=== PATIENT | female | born 1945 | race Caucasian/White ===

== ENCOUNTER 2017-01-03 09:56 | Observation (INO) | payer MEDICARE, OTHER ==
[~2017-01-03] VITALS: Ht 160 cm; Wt 84.9 kg
[~2017-01-03 09:56] MED LIST: AMLO5TAB2 PO; CLON1TAB23 PO; CLON1TAB4 PO; DOXY100T2 PO; ESOM40CA PO; FLUO40CA7 PO; HYDR-4072 PO; LEVO137T2 PO; LISI10TA7 PO; METH10TA5 PO; ONDA-55 PO; PANT40TA27 PO; TRAZ-173 PO
--- OUTSIDE RECORDS SUMMARY | 2017-01-03 10:00 | XMS REPORT | Continuity of Care Document ---
Author Author [facility] Organization [facility] Address Unknown Phone Unavailable Care Team Providers Care Pipeline Executive Name Role Phone Nellie Dodson Primary Care Physician Unavailable Source Comments Some departments are not documenting in the electronic medical record. If you do not see the information that you expected, contact Release of Information in the Health Information Management department at [phone] for further assistance in locating additional records.[facility] Active Allergies and Adverse Reactions Allergen Noted Date Severity Reactions Comments Abilify 06/29/2015 Low SEE COMMENTS "many, many side effects and no benefit" Aspirin 06/29/2015 Low STOMACH UPSET Benadryl 07/02/2015 Low SEE COMMENTS rest less leg Cymbalta 06/29/2015 Low SEE COMMENTS "suicidal" Hydralazine 06/29/2015 Low SEE COMMENTS "interacts with my other meds" Macrodantin 06/29/2015 Low SEE COMMENTS "makes me psychotic" Phenergan 06/29/2015 Medium MENTAL STATUS CHANGES Pristiq 06/29/2015 Low SEE COMMENTS "suicidal" Sulfa (Sulfonamide 06/29/2015 Low SEE COMMENTS "bladder pain" Antibiotics) Tramadol 07/02/2015 Low UNKNOWN Current Medications Prescription Sig. Disp. Refills Start End Date Status Date methylphenidate (RITALIN; Take 10 mg by mouth four Active METHYLIN) 10 mg tablet times daily traZODone (DESYREL) 100 Take 100 mg by mouth at Active mg tablet bedtime daily. vilazodone (VIIBRYD) 40 Take by mouth at bedtime Active mg tab daily. clonazePAM (KLONOPIN) 0.5 Take 0.25 mg by mouth Active mg tablet three times daily. lisinopril (PRINIVIL; Take 10 mg by mouth Active ZESTRIL) 10 mg tablet daily. LACTASE (LACTAID PO) Take by mouth daily. Active amLODIPine (NORVASC) 10 Take 10 mg by mouth four Active mg tablet times daily. ACETAMINOPHEN (TYLENOL Take by mouth as Needed. Active PO) HYDROcodone-acetaminophen Take 1 Tab by mouth every Active (+) (NORCO) 7.5-325 mg 6 hours as needed for tablet Pain levothyroxine Take 137 mcg by mouth Active (LEVOTHROID) 137 mcg daily. tablet other medication 1 Dose. Siberian Pose Nut Active Oil : Taking po daily. Active Problems Not on file Social History Tobacco Use Types Packs/Day Years Used Date Never Smoker Smokeless Tobacco: Never Used Alcohol Use Drinks/Week oz/Week Comments No Last Filed Vital Signs Vital Sign Reading Time Taken Blood Pressure 127/73 07/02/2015 10:44 AM CDT Pulse 83 07/02/2015 10:44 AM CDT Temperature 36.6 C (97.8 F) 07/02/2015 10:44 AM CDT Respiratory Rate - - Height 1.6 m (5' 3") 07/02/2015 10:44 AM CDT Weight 81.466 kg (179 lb 9.6 oz) 07/02/2015 10:44 AM CDT Body Mass Index 31.82 07/02/2015 10:44 AM CDT Oxygen Saturation 98% 07/02/2015 10:44 AM CDT Plan of Care Health Maintenance Due Date Last Done Comments Physical (Comprehensive) 1950 Exam Pertussis Vaccine 1954 Tetanus Vaccine 1960 Breast Cancer Screening 1983 Colorectal Cancer 1993 Screening Shingles Vaccine 2003 Osteoporosis Screening 2008 Prevnar/Pneumovax (#1) 2008 Influenza Vaccine 06/05/2017 Results from Last 3 Months Not on file
--- OUTSIDE RECORDS SUMMARY | 2017-01-03 10:01 | XMS REPORT | Continuity of Care Document ---
Author Author [facility] Organization [facility] Address Unknown Phone Unavailable Allergies Active Description Code Type Severity Reaction Onset Reported/Identified Relationship to Patient Clinical Status Yes BENADRYL BENADRYL Drug Allergy Unknown RESTLESS LEGS 09/15/2008 Yes CODEINE CODEINE Drug Allergy Unknown HYPERACTIVE 09/15/2008 Yes codeine codeine Drug Allergy Unknown N/A 09/15/2008 Yes diazepam diazepam Drug Allergy Unknown N/A 09/15/2008 Yes diphenhydramine diphenhydramine Drug Allergy Unknown N/A 09/15/2008 Yes hydrocodone hydrocodone Drug Allergy Unknown N/A 09/15/2008 Yes LORTAB LORTAB Drug Allergy Unknown HYPERACTIVE 09/15/2008 Yes metoclopramide metoclopramide Drug Allergy Unknown N/A 09/15/2008 Yes No Known Contrast Allergies No Known Contrast Allergies Drug Allergy Unknown N/A 09/15/2008 Yes No Known Food Allergies No Known Food Allergies Drug Allergy Unknown N/A 09/15/2008 Yes NO KNOWN LATEX ALLERGY/SENSITI NO KNOWN LATEX ALLERGY/SENSITI Drug Allergy Unknown N/A 2007 Yes PHENERGAN PHENERGAN Drug Allergy Unknown "MAKES ME CRAZY", RUN FROM ONE ROOM TO ANOTHER 09/15/2008 Yes promethazine promethazine Drug Allergy Unknown N/A 09/15/2008 Yes REGLAN REGLAN Drug Allergy Unknown BOWELS LOOSE 09/15/2008 Yes Sulfa (Sulfonamide Antibiotics) Sulfa (Sulfonamide Antibiotics) Drug Allergy Unknown N/A 09/15 Yes SULFA DRUGS SULFA DRUGS Drug Allergy Unknown BLADDER BURN 09/15/2008 Yes VALIUM VALIUM Drug Allergy Unknown HYPERACTIVE 09/15/2008 Yes BENADRYL BENADRYL Drug Allergy Unknown RESTLESS LEGS 09/15/2008 Yes CODEINE CODEINE Drug Allergy Unknown HYPERACTIVE 09/15/2008 Yes codeine codeine Drug Allergy Unknown N/A 09/15/2008 Yes diazepam diazepam Drug Allergy Unknown N/A 09/15/2008 Yes diphenhydramine diphenhydramine Drug Allergy Unknown N/A 09/15/2008 Yes hydrocodone hydrocodone Drug Allergy Unknown N/A 09/15/2008 Yes LORTAB LORTAB Drug Allergy Unknown HYPERACTIVE 09/15/2008 Yes metoclopramide metoclopramide Drug Allergy Unknown N/A 09/15/2008 Yes No Known Contrast Allergies No Known Contrast Allergies Drug Allergy Unknown N/A 09/15/2008 Yes No Known Food Allergies No Known Food Allergies Drug Allergy Unknown N/A 09/15/2008 Yes NO KNOWN LATEX ALLERGY/SENSITI NO KNOWN LATEX ALLERGY/SENSITI Drug Allergy Unknown N/A 2007 Yes PHENERGAN PHENERGAN Drug Allergy Unknown "MAKES ME CRAZY", RUN FROM ONE ROOM TO ANOTHER 09/15/2008 Yes promethazine promethazine Drug Allergy Unknown N/A 09/15/2008 Yes REGLAN REGLAN Drug Allergy Unknown BOWELS LOOSE 09/15/2008 Yes Sulfa (Sulfonamide Antibiotics) Sulfa (Sulfonamide Antibiotics) Drug Allergy Unknown N/A 09/15 Yes SULFA DRUGS SULFA DRUGS Drug Allergy Unknown BLADDER BURN 09/15/2008 Yes VALIUM VALIUM Drug Allergy Unknown HYPERACTIVE 09/15/2008 Yes Phenergan Drug Allergy Adverse Reaction 09/18/2009 Yes Reglan Drug Allergy Adverse Reaction 09/18/2009 Yes Sulfa (Sulfonamide Antibiotics Drug Allergy Adverse Reaction 09/18/2009 Yes Ultram Drug Allergy Adverse Reaction 09/18/2009 Yes Valium Drug Allergy Adverse Reaction 09/18/2009 Yes Benadryl Cold Drug Allergy Adverse Reaction 05/07/2011 Yes Lortab Drug Allergy Adverse Reaction 05/07/2011 Yes Lactose Miscellaneous Allergy Adverse Reaction / Adverse Reaction 05/18/2011 Yes codeine codeine Drug Allergy Unknown 10/28/2015 Yes diazepam diazepam Drug Allergy Unknown 10/28/2015 Yes diphenhydramine diphenhydramine Drug Allergy Unknown 10/28/2015 Yes hydrocodone hydrocodone Drug Allergy Unknown 10/28/2015 Yes metoclopramide metoclopramide Drug Allergy Unknown 10/28/2015 Yes No Known Contrast Allergies No Known Contrast Allergies Drug Allergy Unknown 10/28/2015 Yes No Known Food Allergies No Known Food Allergies Drug Allergy Unknown 10/28/2015 Yes NO KNOWN LATEX ALLERGY/SENSITI NO KNOWN LATEX ALLERGY/SENSITI Drug Allergy Unknown 10/28/2015 Yes promethazine promethazine Drug Allergy Unknown 10/28/2015 Yes Sulfa (Sulfonamide Antibiotics) Sulfa (Sulfonamide Antibiotics) Drug Allergy Unknown 2015 Medications Problems Date Dx Coded Attending Type Code Diagnosis Diagnosed By 07/21/2012 Oscar Holland MD 311 DEPRESSIVE DISORDER NEC 07/21/2012 Oscar Holland MD Final 338.19 ACUTE PAIN NEC 07/21/2012 Oscar Holland MD Final 784.0 HEADACHE 07/21/2012 Oscar Hollnad MD External E939.0 ADV EFF ANTIDEPRESSANTS 11/21/2013 VIRIDIANA CALDERON MD 536.8 STOMACH FUNCTION DIS NEC 06/04/2015 EMILIA BENITES 2449 HYPOTHYROIDISM NOS 06/04/2015 EMILIA BENITES 90875 RECURR DEPR PSYCHOS-MOD 06/04/2015 EMILIA BENITES 40816 RECUR DEPR PSYCH-SEVERE 06/04/2015 EMILIA BENITES 48229 ANXIETY STATE NOS 06/04/2015 EMILIA BENITES 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 06/04/2015 EMILIA BENITES 4019 HYPERTENSION NOS 06/04/2015 EMILIA BENITES 60265 ESOPHAGEAL REFLUX 10/11/2015 F F32.9 Major depressive disorder, single episode, unspecified Fifi Ram 10/12/2015 F F32.9 Major depressive disorder, single episode, unspecified Lanny Morales Procedures Code Description [place] [address] [facility] METABOLIC PANEL VIRIDIANA CALDERON MD 11/21/2013 71409 ASSAY OF AMYLASE VIRIDIANA CALDERON MD 11/21/2013 48056 COMPLETE CBC, AUTOMATED VIRIDIANA CALDERON MD 11/21/2013 H2011 Fifi Ram 10/11/2015 Results Test Result Range Amylase - 11/21/13 15:45 Amylase 40 U/L 30-110 CBC - 11/21/13 15:45 Eos # 0.21 x10^3 0-0.5 Eos % 2.5 % 0-4 HCT 40.9 % 37.0-47.0 HGB 13.1 G/DL 12.0-16.0 Lymph # 1.57 x10^3 1.0-4.0 Lymph % 18.8 % 20-50 MCH 27.5 PG 27.0-31.0 MCHC 32.0 G/DL 32.0-36.0 MCV 85.7 FL 81-99 Latimer # 0.79 x10^3 0.0-0.8 Latimer % 9.5 % 1.0-9.0 MPV 10.6 FL 6.0-10.0 Platelet 302 x10^3 150-400 RBC 4.77 x10^3 4.20-5.40 RDW 14.7 % 12-15 WBC 8.35 x10^3 4.8-10.8 Baso # 0.08 x10^3 0-0.2 Baso % 1.0 % 0-2 Neut % 68.2 % 50-70 Neut # 5.70 x10^3 3.0-7.0 Comprehensive Metabolic Panel - 11/21/13 15:45 Sodium 141 MMOLL 134-145 Potassium 4.5 MMOLL 3.6-5.0 Chloride 100 MMOLL 98-107 CO2 32 MMOLL 22-30 Glucose 88 MG/DL 75-110 BUN 18 MG/DL 9-20 Creatinine 1.1 MG/DL 0.8-1.7 Calcium 10.4 MG/DL 8.4-10.2 T Bili .3 MG/DL 0.2-1.3 T. Protein 7.4 G/DL 6.3-8.2 A/G Ratio 1.3 RATIO Albumin 4.2 G/DL 3.5-5.0 Alk Phos 115 U/L 38-126 ALT 30 U/L 11-66 AST 28 U/L 14-36 CBC W/DIFF - 10/01/15 17:57 BASOPHIL # 0.1 k/cumm 0.0-0.2 BASOPHIL % 1 % 0-1 EOSINOPHIL # 0.3 k/cumm 0.1-0.5 EOSINOPHIL % 4 % 2-4 GRANULOCYTE # 6.6 k/cumm 2.0-9.0 GRANULOCYTE % 73 % 50-75 LYMPHOCYTE # 1.4 k/cumm 1.0-4.0 LYMPHOCYTE % 15 % 20-30 MEAN CELL HGB 27.6 pg 27.0-33.0 MEAN CELL HGB CONCENTRATION 32.0 g/dL 32.0-37.0 MEAN CELL VOLUME 86.4 fl 80.0-100.0 MONOCYTE # 0.7 k/cumm 0.1-1.0 MONOCYTE % 7 % 4-6 RED BLOOD CELL 4.34 m/cumm 4.00-6.00 RED CELL DISTRIBUTION WIDTH 13.3 % 11.0- 15.6 WHITE BLOOD CELL 9.1 k/cumm 5.0-10.0 HEMOGLOBIN 12.0 gm/dL 12.0-16.0 HEMATOCRIT 37.5 % 37.0-47.0 PLATELET COUNT 269 k/cumm 150-450 AMMONIA (NH3) - 10/01/15 19:51 AMMONIA (NH3) 10 mcmol/L 11-32 METABOLIC PANEL, COMPREHN - 10/01/15 19:51 POTASSIUM 3.9 mmol/L 3.5-5.3 EST GFR (MDRD) 55 mL/min > 59 ANION GAP 9 mmol/L 5-15 EST CrCl (CG) 55 mL/min > 59 GLUCOSE 112 mg/dL 70-99 CALCIUM 9.0 mg/dL 8.5-10.1 BLOOD UREA NITROGEN 15 mg/dL 7-20 CREATININE 1.0 mg/dL 0.6-1.0 SODIUM 140 mmol/L 135-148 CHLORIDE 104 mmol/L 98-110 AST/SGOT 16 Units/L 10-37 ALT/SGPT 18 Units/L < 66 CARBON DIOXIDE 27 mmol/L 21-32 TOTAL PROTEIN 6.9 gm/dL 6.4-8.2 ALBUMIN 3.3 gm/dL 3.4-5.0 BILI TOTAL 0.3 mg/dL 0.0-1.0 ALKALINE PHOSPHATASE TOTAL 80 IU/L 45- 117 INFLUENZA A OIA - INFLUENZA B OIA - 10/01/15 19:55 Microbiology URINALYSIS, ROUTINE - 10/01/15 20:10 UA LEUKOCYTE ESTERASE DIPSTICK TRACE NEGATIVE UA NITRITE DIPSTICK NEGATIVE NEGATIVE UA PROTEIN DIPSTICK NEGATIVE NEGATIVE UA GLUCOSE DIPSTICK NEGATIVE NEGATIVE UA KETONE DIPSTICK NEGATIVE NEGATIVE UA UROBILINOGEN DIPSTICK NORMAL NORMAL UA BILIRUBIN DIPSTICK NEGATIVE NEGATIVE UA BLOOD DIPSTICK NEGATIVE NEGATIVE UA SPECIFIC GRAVITY 1.010 1.015-1.025 UR PH 8.0 5.0-7.0 UA MICROSCOPIC - 10/01/15 20:10 UA BACTERIA 1+ NEGATIVE UA EPITHELIAL CELLS 1+ epi/hpf 0 - 1+ UA RBC 0-3 rbc/hpf 0 - 3 UA VOLUME FOR EXAM 12.0 mL (12mL STD) UA WBC 0-1 wbc/hpf 0 - 5 CHEM/HEM PROFILE-BEDSIDE - 10/28/15 14:13 POTASSIUM 3.4 mmol/L 3.5-5.3 METHOD Bedside ANION GAP 19 mmol/L 10-20 METHOD Bedside GLUCOSE 89 mg/dL 70-99 BLOOD UREA NITROGEN 13 mg/dL 7-20 CREATININE 1.1 mg/dL 0.6-1.0 HEMOGLOBIN 12.2 gm/dL 12.0-16.0 HEMATOCRIT 36.0 % 37.0-47.0 SODIUM 142 mmol/L 135-148 CHLORIDE 100 mmol/L 98-110 CARBON DIOXIDE 27 mmol/L 21-32 CALCIUM IONIZED 4.8 mg/dL 4.5-5.3 TROPONIN I BEDSIDE - 10/28/15 14:16 METHOD Bedside TROPONIN I < 0.04 ng/mL < 0.11 Encounters ACCT No. Visit Date/Time Discharge Status Pt. Type Provider Facility Loc./Unit Complaint [id number] 07/21/2012 21:29:00 2011 01:50:00 DIS Emergency Skyler HERRMANN, Oscar [facility] on [facility]
--- OUTSIDE RECORDS SUMMARY | 2017-01-03 10:01 | XMS REPORT ---
Author Author [facility] Organization Unknown Address Unknown Phone Unavailable Care Team Providers Care Milk Condenser Name Role Phone UNASSIGNED DOCTOR , DOCTOR PP [phone] Reason For Visit Reason for Visit from 05/27/2015 1:40 AM:* Pt Stated Reason for Adm : Increased anxiety Chief Complaint MOOD D/O NOS Social History Social History from 05/27/2015 2:42 PM:* Tobacco Use? : Never Smoker Social History from 05/27/2015 1:40 AM:* Tobacco Use? : Never Smoker Functional Status Functional Status from 05/27/2015 8:26 AM:* LOC : Alert * Oriented To : Person,Place,Time * Weight Bearing Status : Full * Assist Level : Independent * # Assists : Independent Functional Status from 05/27/2015 1:40 AM:* LOC : Alert * Oriented To : Person,Place,Time,Event * Weight Bearing Status : Full * Assist Level : Independent * # Assists : Independent Vital Signs Hospital Vital Signs from 05/27/2015 12:58 PM:* Height : 5/3 ft,in * Temperature : 98.5 F * Pulse : 64 * Respirations : 18 * BP : 122/65 Hospital Vital Signs from 05/27/2015 10:25 AM:* Height : 5/3 ft,in * Temperature : 96.8 F * Respirations : 18 * BP : 124/85 Hospital Vital Signs from 05/27/2015 6:37 AM:* Height : 5/3 ft,in * Temperature : 98.1 F * Pulse : 60 * Respirations : 20 * BP : 121/70 Hospital Vital Signs from 05/27/2015 1:42 AM:* Weight : 79/ kg * Height : 5/3 ft,in * Temperature : 97.8 F * Pulse : 69 * Respirations : 20 * BP : 132/85 Hospital Vital Signs from 05/27/2015 1:40 AM:* Weight : 79/ kg * Height : 5/3 ft,in Results Problems Encounter Diagnosis * Anxiety Comment:Problem resolved by [employer] Work[employer] upon Discharge, Status: Resolved. * Mood Disorder Comment:Problem resolved by [employer] upon Discharge, Status:Resolved. Encounters Encounter Diagnosis * Anxiety Comment:Problem resolved by [employer] upon Discharge, Status: Resolved. * Mood Disorder Comment:Problem resolved by [employer] upon Discharge, Status:Resolved. Plan of Care Follow-up Appointments from 05/27/2015 2:42 PM:* #1 Office appointment: : Dr. Lucas , schedule GEMMA * Address # 1 : [facility]: [address], [address], [place] - Procedures No relevant procedures performed. Immunizations No immunizations administered or ordered. Hospital Course Hospital Discharge Instructions How to care for yourself at home from 05/27/2015 2:42 PM:* Discharge Activity : Activity as tolerated,May Shower * Discharge Diet : Modification as given by physician * Discharge Diet: : Cardiac, lactose free, soft diet * Call your doctor if: : Fever over 101 F or severe chills,Chest pain or other unexplained symptoms,Tingling or numbness develops,A sudden increase or decrease in weight,You have persistent or worsening symptoms,If you have Heart Failure and you gain 3 pounds within 1 week or your symptoms worsen. (Weigh at home tomorrow morning) Allergies, Adverse Reactions, Alerts * ibuprofen causes Unknown. * aripiprazole causes Unknown. * diphenhydramine causes Unknown. * metoclopramide causes Unknown. * promethazine causes Unknown. * risperidone causes Unknown. * tramadol causes Unknown. * aspirin causes Unknown. * hydrocodone causes Unknown. * diazepam causes Unknown. * Sulfa (Sulfonamide Antibiotics) causes Unknown. * desvenlafaxine causes Unknown. * No Latex Allergy. * No IV Contrast Allergy. Medication It is the responsibility of the patient or patient hobbies and crafts sales representative to confirm the list of medications with either the patient's personal care provider or the patient's follow-up care provider to ensure the patient has an appropriate list of medications to take at home. Discharge medications New medications* HYDROCODONE-ACETAMINOPH 7.5-325 Directions: take per prescription bottle Changed medications* amLODIPine 5 mg Tablet, Ordered By: KUN LUNA RN, BSN Directions: 1 tablet oral daily * clonazePAM 2 mg Tablet, Ordered By: KUN LUNA RN, BSN Directions: 1 tablet oral twice a day * diphenoxylate-atropine 2.5 mg-0.025 mg Tablet, Ordered By: KUN LUNA RN , BSN Directions: 1 tablet oral every four hours Additional Instructions: follow directions on prescription bottle * esomeprazole magnesium (NexIUM) 40 mg capsule,delayed release(DR/EC), Ordered By: KUN LUNA RN, BSN Directions: 1 capsule oral daily before breakfast * levothyroxine 137 mcg Tablet, Ordered By: KUN LUNA RN, BSN Directions: 1 tablet oral daily before breakfast * lisinopril 10 mg Tablet, Ordered By: KUN LUNA RN, BSN Directions: 1 tablet oral daily * ondansetron HCl 4 mg Tablet, Ordered By: KUN LUNA RN, BSN Directions: 1 tablet oral every eight hours PRN nausea or vomiting Additional Instructions: follow directions on prescription bottle * vilazodone (Viibryd) 40 mg Tablet, Ordered By: KUN LUNA RN, BSN Directions: 1 tablet oral daily * traZODone 100 mg Tablet, Ordered By: KUN LUNA RN, BSN Directions: 1 tablet oral daily at bedtime * vitamin B comp & C no.3 15 mg-10 mg-50 mg-5 mg-10 mg-300 mg Capsule, Ordered By: KUN LUNA RN, BSN Directions: 1 capsule oral daily Stopped medications* HYDROCODON-ACETAMINOPH 7.5-325
--- OUTSIDE RECORDS SUMMARY | 2017-01-03 10:01 | XMS REPORT ---
Author Author [facility] Organization Unknown Address Unknown Phone Unavailable Care Team Providers Care Molding Utility Worker Name Role Phone UNASSIGNED DOCTOR , DOCTOR PP [phone] Reason For Visit Reason for Visit from [...] ft,in Results Problems Encounter Diagnosis * Anxiety Status:Active. * Mood Disorder Status:Active. Encounters Encounter Diagnosis * Anxiety Status:Active. * Mood Disorder Status:Active. Plan of Care Follow-up Appointments from 05/27/2015 2:42 PM:* #1 Office appointment: : carlitos Sampson * Address # 1 : [facility]: [address], [address], [place] [...] the responsibility of the patient or patient financial foundations representative to confirm the list of medications [...]
[2017-01-03] MEDS ORDERED: CLON1TAB4 PO (10:35)
[2017-01-03] MEDS ORDERED: HYDR-4246 PO (10:36)
[2017-01-03] MEDS ORDERED: PROC5TAB59 PO (10:39)
[2017-01-03] MEDS ORDERED: DIPH25TA45 PO (10:39)
[2017-01-03] MEDS ORDERED: restful legs PO (10:40)
[2017-01-03] MEDS ORDERED: NORMAL SALINE 1,000 ML IV ONE (10:51)
--- NOTE | 2017-01-03 10:53 | ERPDOC ---
Departure Disposition Decision Date: Jan 03, 2017 Disposition Decision Time: 14:37 Disposition: 02 TO [facility] Impression Impression Impression: Primary Impression: Pancreatitis Additional Impressions: Elevated lipase Dehydration Severity: Moderate Condition: Improved Seen By: Physician only Referrals: ROOSEVELT LOPEZ MD (Family) Problems/Meds/Labs Reviewed?: Yes Medications reviewed and manag: Yes Follow up care ordered?: Yes Mental Status: Alert, Oriented HPI - Cough/URI General Chief Complaint: Cough,Fever,Flu,URI Stated Complaint: FLU LIKE SYMPTOMS Time Seen by Provider: 10:50 HPI - Cough/URI Initial Comments 71-year-old female with nausea vomiting diarrhea and abdominal cramping. She's had slight fever over the last 2 days. She does have significant medical history including fibromyalgia, MS-like symptoms, frequent falls, and also sphincter incontinence. She is very frustrated as she has had this diarrhea and it just seems to run constantly. Her is not sick. Patient states she has lost 160 pounds over the last 4-5 years. She states she frequently has abdominal pain, nausea and cramping. Is uncertain if it is related to any certain foods. Allergies: Coded Allergies: lactose (Verified Allergy, Severe, 01/03/17) tramadol (Verified Allergy, Severe, CONFUSION,DISTORTED THINKING, 01/03/17) hydromorphone (Verified Allergy, Intermediate, "DREAMS OF RATS", 01/03/17) Sulfa (Sulfonamide Antibiotics) (Verified Allergy, Unknown, BLADDER PAIN, 01/03/17) aripiprazole (Verified Allergy, Unknown, "MULTIPLE SIDE EFFECTS", 01/03/17) PER H&P desvenlafaxine (Verified Allergy, Unknown, 01/03/17) diazepam (Verified Allergy, Unknown, "MAKES PATIENT FEEL HIGH", 01/03/17) PER H&P diphenhydramine (Verified Allergy, Unknown, RESTLESS LEGS, 01/03/17) duloxetine (Verified Allergy, Unknown, 01/03/17) lorazepam (Verified Allergy, Unknown, 01/03/17) nitrofurantoin (Verified Allergy, Unknown, 01/03/17) promethazine (Verified Allergy, Unknown, HYPERACTIVITY, 01/03/17) risperidone (Verified Allergy, Unknown, "MULTIPLE SIDE EFFECTS", 01/03/17) PER H&P desvenlafaxine succinate (Verified Adverse Reaction, Severe, SUICIDAL THOUGHTS, 01/03/17) aspirin (Verified Adverse Reaction, Mild, STOMACH TORN UP, 01/03/17) Past History Past Medical History Metabolic: hypertension, hypothyroidism ENMT: sleep apnea Cardiac: CAD, [place] Respiratory: pneumonia GI: GERD, IBS Female: UTI Neurological: cerebral aneurysm, headaches, migraines Psychological: anxiety, depression Surgical History General: gallbladder Cardiac: pacemaker Reproductive/: hysterectomy Joint: knee Family History Family PMH: FOUND: CHF, cancer Vaccines Hx Influenza Vaccination: No (REFUSES) Hx Pneumococcal Vaccination: Yes (STATES SHE NEEDS ONE. ) Hx Tetanus, Diptheria, Pertuss: No Social History Substance Use Type: does not use Alcohol Intake: none Sexuality: male partner Physical Exam General General Nourishment: well nourished, appears stated age Distress Description Abdominal pain, nausea Vitals and Pain First Documented Vital Signs Date Time Temp Pulse Resp B/P Pulse Ox O2 Delivery O2 Flow Rate FiO2 01/03/17 10:00 98.7 66 16 176/82 93 Room Air Weight: Kilograms: 83.000 Height (feet): 5 Height (inches): 3.00 Triage Pain Scale: Normal Exams: Head: Normocephalic w/o trauma Chest/Resp: Clear all law, with good airflow, and symmetry bilaterally CV: Regular rate and rhythm, without murmur or gallop, Pulses 2+ all extremities, capillary refill, <2 seconds all ext., no pedal edema noted Neurologic: Patient is alert, and oriented, cranial nerves, motor/sensory/ cerebellar, exams w/o gross deficits, to observation Psychiatric: Patient exhibits, appropriate attention, emotion and affect Abdomen (brief) Abdominal Brief: FOUND: tender Progress Results/Orders Orders Procedure Category Date Status Time Cmp - Comprehensive LAB 01/03/17 Complete Metabolic 10:51 Cbc W/Auto LAB 01/03/17 Complete Diff-Reflex Manual 10:51 Blood Culture JOE 01/03/17 In Process 10:51 Lipase LAB 01/03/17 Complete 10:51 Ua, Dip Wreflex LAB 01/03/17 Complete Microsc & Hydrometeorology Teacher 10:51 Gi Panel, Pcr, Stool LAB 01/03/17 Complete 10:51 Kub W/Upright RAD 01/03/17 Taken 10:51 Iv Lock (Ed Only) EDM 01/03/17 Transmitted 10:51 Normal Saline (Normal PHA 01/03/17 Complete Saline Iv) 10:51 Ondansetron Inj PHA 01/03/17 Complete (Zofran) 11:00 Dexamethasone Inj PHA 01/03/17 Complete (Decadron) 11:00 Ketorolac (Toradol) PHA 01/03/17 Complete 11:00 Prochlorperazine PHA 01/03/17 Complete (Compazine) 12:30 Ct Abd/Pelvis CT 01/03/17 Taken W/Contrast Only 13:14 Iohexol (Omnipaque) PHA 01/03/17 Complete 13:17 Normal Saline (Ns) PHA 01/03/17 Complete 13:17 Saline Flush (Iv PHA 01/03/17 Complete Flush) 13:17 Place In Facility: ED ADM 01/03/17 Transmitted Npo Now GINI 01/03/17 Transmitted 14:29 Compression Type Scd/ GINI 01/03/17 Transmitted Mark Hose 14:29 Npo: Nothing By Mouth DIET 01/03/17 Transmitted Dinner 10/06 Ns W/ Kcl PHA 01/03/17 Transmitted 20meq(Floor Use) 14:30 Ondansetron Inj PHA 01/03/17 Transmitted (Zofran) 14:30 Prochlorperazine PHA 01/03/17 Transmitted (Compazine) 14:30 Lab Results Laboratory Tests Test 01/03/17 11:14 01/03/17 12:03 01/03/17 14:03 White Blood Count 6.8T/MM3 Red Blood Count 4.36M/MM3 Hemoglobin 12.7GM/DL Hematocrit 38.9% Mean Corpuscular Volume 89.2UM3 Mean Corpuscular Hemoglobin 29.1UUG Mean Corpuscular Hemoglobin Concent 32.6GM/DL RDW Standard Deviation 43.7FL Platelet Count 246T/MM3 Mean Platelet Volume 10.2UM3 Immature Granulocyte % (Auto) 0.1% Neutrophils (%) (Auto) 76.7% Lymphocytes (%) (Auto) 12.9% Monocytes (%) (Auto) 6.4% Eosinophils (%) (Auto) 3.5% Basophils (%) (Auto) 0.4% Absolute Immature Granulocyte (auto 0.01T/MM3 Absolute Neutrophils (auto) 5.2T/MM3 Absolute Lymphocytes (auto) 0.9T/MM3 Absolute Monocytes (auto) 0.4T/MM3 Absolute Eosinophils (auto) 0.2T/MM3 Absolute Basophils (auto) 0.0T/MM3 Turbidity < 20 Sodium Level 144MEQ/L Potassium Level 3.9MEQ/L Chloride Level 107MEQ/L Carbon Dioxide Level 26MEQ/L Anion Gap 11MEQ/L Blood Urea Nitrogen 18.0MG/DL Creatinine 0.8MG/DL Glomerular Filtration Rate Calc 70 BUN/Creatinine Ratio 23RATIO Glucose Level 94MG/DL Calculated Osmolality 279MOSM/KG Calcium Level 9.1MG/DL Total Bilirubin 0.50MG/DL Icterus Index < 2 Aspartate Amino Transf (AST/SGOT) 19U/L Alanine Aminotransferase (ALT/SGPT) 25U/L Alkaline Phosphatase 69U/L Total Protein 6.6G/DL Albumin 3.8G/DL Globulin 2.8G/DL Albumin/Globulin Ratio 1.4RATIO Lipase 973U/L Chemistry Specimen Hemolysis < 15 Stool Cyclospora species Detection Negative Stool Rotavirus A PCR Negative Stool Adenovirus (PCR) Negative Stool Astrovirus (PCR) Negative Stool Campylobacter PCR Negative Stool C. difficile Toxin (PCR) Negative Stool Cryptosporidium PCR Negative Stool E. coli Shiga Toxins Negative Stool E coli O157 PCR N/a Stool Enterotoxigenic Ecoli PCR Negative Stool Enteropathogenic E. coli (PCR Negative Stool Enteroaggregative E. coli PCR Negative Stool Entamoeba (PCR) Negative Stool Giardia Lamblia PCR Negative Stool Salmonella PCR Negative Stool Sapovirus (PCR) Detected Stool Plesiomonas shigelloides PCR Negative Stool Shigella/EIEC (PCR) Negative Stool Yersinia enterocolitica (PCR) Negative Stool Vibrio (PCR) Negative Stool Vibrio cholera (PCR) Negative Stool Norovirus GI/GII PCR Negative Urine Collection Type Voided-not cc-midstr Urine Color Yellow Urine Turbidity Clear Urine pH 6.5 Urine Specific [place] 1.010 Urine Protein Negative Urine Glucose (UA) Negative Urine Ketones Negative Urine Blood Negative Urine Nitrite Negative Urine Bilirubin Negative Urine Urobilinogen 0.2EU/DL Urine Leukocyte Esterase Negative Urinalysis Comment Microscopic not ind. Medications Current ED Medications Sodium Chloride (Normal Saline IV) 1,000 ml @ 1,000 mls/hr Q1H ONCE IV Last administered on 01/03/17t 11:19; Start 01/03/17 at 10:51; Stop 01/03/17 at 11:50; Status DC Ondansetron HCl (Zofran) 4 mg O ONCE IV Last administered on 01/03/17 11:19; Start 01/03/17 at 11:00; Stop 01/03/17 at 11:07; Status DC Dexamethasone Sodium Phosphate (Decadron) 8 mg O ONCE IV Last administered on 01/03/17 11:19; Start 01/03/17 at 11:00; Stop 01/03/17 at 11:07; Status DC Ketorolac Tromethamine (Toradol) 30 mg O ONCE IV Last administered on 11:19; Start 01/03/17 at 11:00; Stop 01/03/17 at 11:07; Status DC Prochlorperazine Edisylate (Compazine) 10 mg O ONCE IV Last administered on 12:46; Start 01/03/17 at 12:30; Stop 01/03/17 at 12:31; Status DC Iohexol 1 bottle 1 bottle STK-MED ONCE .ROUTE ; Start 01/03/17 at 13:17; Stop 01/03/17 at 13:18; Status DC Sodium Chloride (NS) 100 ml @ As Directed STK-MED ONCE .ROUTE ; Start 01/03/17 at 13:17; Stop 01/03/17 at 13:18; Status DC Sodium Chloride (Iv Flush) 10 ml STK-MED ONCE .ROUTE ; Start 01/03/17 at 13:17; Stop 01/03/17 at 13:18; Status DC Progress Progress Elevated lipase, dehydration, nausea. This certainly remains towards a diagnosis of pancreatitis. CT abdomen did not show any acute pancreatic changes , did show ileus. Patient will be admitted to observation with Dr. Gamboa. Compazine, Zofran, IV fluids and nothing by mouth. ELANA PARADA MD Jan 03, 2017 10:53
[2017-01-03] MEDS ORDERED: DEXAMETHASONE 4mg/ml - 1ml INJECTION IV ONE (11:00)
[2017-01-03] MEDS ORDERED: KETOROLAC 30mg/ml INJECTION IV ONE (11:00)
[2017-01-03] MEDS ORDERED: ONDANSETRON 4mg/2ml INJECTION IV ONE (11:00)
--- OUTSIDE RECORDS SUMMARY | 2017-01-03 11:07 | XMS REPORT | Continuity of Care Document ---
Author Author [facility] Organization [facility] Address Unknown Phone Unavailable Care Team Providers Care Duralumin Metalworker Name Role Phone Nellie Dodson Primary Care Physician Unavailable Source Comments Some departments are not documenting in the electronic medical record. If you do not see the information that you expected, contact Release of Information in the Health Information Management department at [phone] for further assistance in locating additional records.[facility] Active Allergies and Adverse Reactions Allergen Noted [...]
--- OUTSIDE RECORDS SUMMARY | 2017-01-03 11:08 | XMS REPORT ---
Author Author [facility] Organization Unknown Address Unknown Phone Unavailable Care Team Providers Care Barrel Builder Name Role Phone UNASSIGNED DOCTOR , DOCTOR PP [phone] Reason For Visit Reason for Visit from [...] schedule GEMMA * Address # 1 : [facility]: [address], [address], [place] [...] the responsibility of the patient or patient banking representative to confirm the list of medications [...]
--- OUTSIDE RECORDS SUMMARY | 2017-01-03 11:08 | XMS REPORT ---
Author Author [facility] Organization Unknown Address Unknown Phone Unavailable Care Team Providers Care College Or [employer] Business Manager Name Role Phone UNASSIGNED DOCTOR , DOCTOR PP [phone] Reason For Visit Reason for Visit from [...] carlitos Sampson * Address # 1 : [facility]: [address], [address], [place] [...] the responsibility of the patient or patient contact center representative to confirm the list of medications [...] * levothyroxine 137 mcg Tablet, Ordered By: KNU LUNA RN, BSN Directions: 1 tablet oral [...]
--- OUTSIDE RECORDS SUMMARY | 2017-01-03 11:08 | XMS REPORT | Continuity of Care Document ---
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 06/04/2015 EMILIA BENITES 4019 HYPERTENSION NOS 06/04/2015 EMILIA BENITES 22943 ESOPHAGEAL REFLUX 10/11/2015 F F32.9 Major depressive disorder, single episode, unspecified Fifi Ram 10/12/2015 F F32.9 Major depressive disorder, single episode, unspecified Lanny Morales Procedures Code [place] [address] [facility] METABOLIC PANEL VIRIDIANA CALDERON MD 11/21/2013 81878 ASSAY OF AMYLASE VIRIDIANA CALDERON MD 11/21/2013 95323 COMPLETE CBC, AUTOMATED VIRIDIANA CALDERON MD 11/21/2013 [...] 32.0 G/DL 32.0-36.0 MCV 85.7 FL 81-99 [place]val # 0.79 x10^3 0.0-0.8 [place] % 9.5 % 1.0-9.0 MPV 10.6 FL [...] Status Pt. Type Provider Facility Loc./Unit Complaint [id number] 07/21/2012 21:29:00 2011 01:50:00 DIS Emergency Skyler HERRMANN, Oscar [facility]
[2017-01-03 11:26] LABS: BASOPHILS % (AUTO) 0.4 % (0-2); EOSINOPHILS # (AUTO) 0.2 T/MM3 (0-0.5); EOSINOPHILS % (AUTO) 3.5 % (0-4); HCT - HEMATOCRIT 38.9 % (36-46); HGB - HEMOGLOBIN 12.7 GM/DL (12-16); IMMATURE GRANULOCYTE # (AUTO) 0.01 T/MM3 (0.00-0.03); IMMATURE GRANULOCYTE % (AUTO) 0.1 % (0.0-0.5); LYMPHOCYTES # (AUTO) 0.9 T/MM3 (1-4.8); LYMPHOCYTES % (AUTO) 12.9 % (23-45); MEAN CORPUSCULAR HGB 29.1 UUG (26-34); MEAN CORPUSCULAR HGB CONC(MCHC 32.6 GM/DL (31-37); MEAN CORPUSCULAR VOLUME 89.2 UM3 (80-100); MEAN PLATELET VOLUME 10.2 UM3 (9.4-12.4); MONOCYTES # (AUTO) 0.4 T/MM3 (0-0.8); MONOCYTES % (AUTO) 6.4 % (0-9.0); NEUTROPHILS #(AUTO)-ABSOLUTE 5.2 T/MM3 (1.8-7.7); NEUTROPHILS % (AUTO) 76.7 % (33-66); RED BLOOD COUNT 4.36 M/MM3 (4.00-5.20); WBC - WHITE BLOOD COUNT 6.8 T/MM3 (4.5-11.0)
[2017-01-03 11:31] LABS: ALBUMIN 3.8 G/DL (3.5-5.0); ALBUMIN/GLOBULIN RATIO 1.4 RATIO (1.1-2.2); ALKALINE PHOSPHATASE 69 U/L (38-126); ALT (SGPT) 25 U/L (9-52); ANION GAP 11 MEQ/L (5-15); AST (SGOT) 19 U/L (14-36); BUN/CREATININE RATIO 23 RATIO (6-26); CALCIUM 9.1 MG/DL (8.4-10.2); CHLORIDE 107 MEQ/L (98-107); CO2 - CARBON DIOXIDE 26 MEQ/L (22-30); CREATININE 0.8 MG/DL (0.7-1.2); GLOMERULAR FILTRATION RATE 70; GLUCOSE 94 MG/DL (65-110); LIPASE 973 U/L (23-300); POTASSIUM 3.9 MEQ/L (3.6-5); SODIUM 144 MEQ/L (134-144); TOTAL PROTEIN 6.6 G/DL (6.3-8.2)
--- NOTE | 2017-01-03 11:48 | NUR ---
STATUS PATIENT STATED THAT SHE NEEDS TO CLEAN HERSELF UP. SUPPLIES AND BSC WERE SUPPLIED. PATIENT REFUSED ASSISTANCE, STATING THAT HER , WHO IS IN THE ROOM, WILL HELP HER. PATIENT IS EDUCATED ON COLLECTING A STOOL SPECIMEN. PATIENT STATES THAT DOES NOT THINK THAT SHE WILL BE ABLE TO COLLECT A GOOD URINE SPECIMEN AND THAT SHE DOES NOT WANT A CATHETER STUCK INTO HER BLADDER.
[2017-01-03] MEDS ORDERED: PROCHLORPERAZINE 10mg/2ml INJECTION IV ONE (12:30)
[2017-01-03] MEDS ORDERED: IOHEXOL 300 MG/ML 100ml INJECTION ONE (13:17)
[2017-01-03] MEDS ORDERED: SALINE FLUSH 10ml SYRINGE ONE (13:17)
[2017-01-03] MEDS ORDERED: NORMAL SALINE 100 ML ONE (13:17)
[2017-01-03 14:08] LABS: BLOOD, URINE NEGATIVE (NEGATIVE); COLOR,URINE YELLOW (YELLOW); LEUKOCYTE ESTERASE ,URINE NEGATIVE (NEGATIVE); NITRITE,URINE NEGATIVE (NEGATIVE); UROBILINOGEN,URINE 0.2 EU/DL (NORMAL)
--- NOTE | 2017-01-03 14:21 | NUR ---
PROVIDER DR PARADA IN TO SEE PATIENT.
[2017-01-03] MEDS ORDERED: ONDANSETRON 4mg/2ml INJECTION IV PRN (14:30)
[2017-01-03] MEDS ORDERED: PROCHLORPERAZINE 10mg/2ml INJECTION IV PRN (14:30)
--- NOTE | 2017-01-03 14:57 | NUR ---
REPORT GIVEN TO LISE KWONG. NO QUESTIONS.
--- NOTE | 2017-01-03 15:00 | NUR ---
Admit Patient admitted to medical unit room 145 from ED. Arrived by wheelchair. Able to stand with assistance and transfer to bed. Patient answers admit questions appropriately. present. Bed alarm on due to patient reporting numerous falls at home.
--- OUTSIDE RECORDS SUMMARY | 2017-01-03 15:01 | XMS REPORT | Continuity of Care Document ---
Author Author [facility] Organization [facility] Address Unknown Phone Unavailable Care Team Providers Care Club Car Attendant Name Role Phone Nellie Dodson Primary Care Physician Unavailable Source Comments Some departments are not documenting in the electronic medical record. If you do not see the information that you expected, contact Release of Information in the Health Information Management department at [phone] for further assistance in locating additional records.[facility] [...]
--- OUTSIDE RECORDS SUMMARY | 2017-01-03 15:02 | XMS REPORT ---
Author Author [facility] Organization Unknown Address Unknown Phone Unavailable Care Team Providers Care Gas Pit Worker Name Role Phone UNASSIGNED DOCTOR , DOCTOR PP [phone] Reason For Visit Reason for Visit from [...] schedule GEMMA * Address # 1 : [facility]: [address], [address], [place] [...] the responsibility of the patient or patient registration representative to confirm the list of medications [...]
--- OUTSIDE RECORDS SUMMARY | 2017-01-03 15:02 | XMS REPORT | Continuity of Care Document ---
Author Author [facility] Organization [facility] Address Unknown Phone Unavailable Allergies Active [...] BENITES 2449 HYPOTHYROIDISM NOS 06/04/2015 EMILIA BENITES 27459 RECURR DEPR PSYCHOS-MOD 06/04/2015 EMILIA BENITES 16681 RECUR DEPR PSYCH-SEVERE 06/04/2015 EMILIA BENITES 60902 ANXIETY STATE NOS 06/04/2015 EMILIA BENITES 73982 BORDERLINE PERS DISORDER 06/04/2015 EMILIA BENITES 4019 HYPERTENSION NOS 06/04/2015 EMILIA BENITES 57189 ESOPHAGEAL REFLUX 10/11/2015 F F32.9 Major depressive disorder, single episode, unspecified Fifi Ram 10/12/2015 F F32.9 Major depressive disorder, single episode, unspecified Lanny Morales Procedures Code Description [place] [address] [facility] METABOLIC PANEL VIRIDIANA CALDERON MD 11/21/2013 91302 ASSAY OF AMYLASE VIRIDIANA CALDERON MD 11/21/2013 76924 COMPLETE CBC, AUTOMATED VIRIDIANA CALDERON MD 11/21/2013 [...] 32.0 G/DL 32.0-36.0 MCV 85.7 FL 81-99 [place] # 0.79 x10^3 0.0-0.8 [place] % 9.5 % 1.0-9.0 MPV 10.6 FL [...] Status Pt. Type Provider Facility Loc./Unit Complaint [id number] 07/21/2012 21:29:00 2011 01:50:00 DIS Emergency Skyler HERRMANN, Oscar [facility] on [facility]
--- OUTSIDE RECORDS SUMMARY | 2017-01-03 15:02 | XMS REPORT ---
Author Author [employer] [employer] Organization Unknown Address Unknown Phone Unavailable Care Team Providers Care Appliance Parts Counter Clerk Name Role Phone UNASSIGNED DOCTOR , DOCTOR PP [phone] Reason For Visit Reason for Visit from [...] carlitos Sampson * Address # 1 : [facility]: [address], [address], [place] [...] the responsibility of the patient or patient loss control representative to confirm the list of medications [...]
[2017-01-03 15:05] VITALS: BP 157/83; PULSE 67; RESP 18; TEMP 95.6; O2SAT 94
[2017-01-03 15:06] VITALS: Ht 160 cm; Wt 84.9 kg
[2017-01-03] MEDS: 1/2 NS w/ KCL 20mEq 1,000 ML IV SCH ×2 (15:23→22:30)
[2017-01-03] MEDS ORDERED: HYOSCYAMINE 0.125 MG TABLET PO PRN (16:30)
[2017-01-03] MEDS ORDERED: CLONAZEPAM 1 MG TABLET PO PRN (16:30)
[2017-01-03] MEDS ORDERED: DiphenhydrAMINE 25 MG CAPSULE PO PRN (16:30)
--- NOTE | 2017-01-03 16:52 | HPPDOC ---
KYLIE LANDAVERDE FUNERAL PLANNING COUNSELOR 01/03/17 1640: HPI - Adult Date DATE: 01/03/17 TIME: 16:36 General Chief Complaint: Diarrhea History of Present Illness HPI - Cough/URI Initial Comments 71-year-old female with nausea vomiting diarrhea and abdominal cramping. She's had slight fever over the last 2 days. She does have significant medical history including fibromyalgia, MS-like symptoms, frequent falls, and also sphincter incontinence. She is very frustrated as she has had this diarrhea and it just seems to run constantly. Her is not sick. Patient states she has lost 160 pounds over the last 4-5 years. She states she frequently has abdominal pain, nausea and cramping. Is uncertain if it is related to any certain foods Progress Progress Elevated lipase, dehydration, nausea. This certainly remains towards a diagnosis of pancreatitis. CT abdomen did not show any acute pancreatic changes , did show ileus. Patient will be admitted to observation with Dr. Gamboa. Compazine, Zofran, IV fluids and nothing by mouth. HPI-Hospitalist: Anahi is seen today after presented to the ED as detailed above. She reports starting feeling ill last night. Ate out at [employer] and had an omlet. Persistent diarrhea. Denies any acute abdominal, epigastric, or back pain. Denies any fever or chills. No chest pain, SOA. Does not report cough to me. Does have multiple chronic health issues, and is concerned about getting her home meds restarted, primarily her Ritalin. She is also c/o feeling hungry and would like to have something to drink. Upon review of her records, she is found to have Sapovirus, which is in the Norovirus family. Expected duration 48 hours. Staff reports that she has not had any BM since she left the ED. Chart is reviewed for collateral information. Past Medical History Past Medical History HTN HLD Hypothyroid ACRA CAD/MT (Juan Manuel). EF 60%. Pneumonia IBS/Constipation GERD UTI Migraines/KEVIN Cerebral aneurysm Fibromyalgia Syndrome Depression, MDD since childhood Dementia BPAD Surgical History Patient's Surgical History: GB PPM Heart Cath Tubal Hyst Knee Current Medications Home Meds Reported Medications [restful legs] No Conflict Check, 2 TAB PO HS Y for RESTLESSNESS 01/03/17 Diphenhydramine HCl (Sleep Tablet) 25 Mg Tablet, 25 MG PO HS Y for INSOMNIA 01/03/17 Prochlorperazine Maleate (Compazine) 5 Mg Tablet, 5 MG PO PRN 01/03/17 Hydrocodone/Acetaminophen ([place] 5-325 Tablet) 5-325 Tablet, 1 TAB PO BID Y for PAIN 01/03/17 Clonazepam (Clonazepam) 1 Mg Tablet, 2 MG PO HS 01/03/17 Fluoxetine HCl (Prozac) 40 Mg Capsule, 40 MG PO DAILY 11/19/16 Ondansetron HCl (Ondansetron HCl) 4 Mg Tablet, 8 MG PO BID Y for NAUSEA 11/19/16 Esomeprazole Magnesium (Nexium) 40 Mg Capsule.dr, 40 MG PO DAILY Y for PRN ORDERS 11/19/16 Levothyroxine Sodium (Levothyroxine Sodium) 137 Mcg Tablet, 137 MCG PO ACB 11/19/16 Pantoprazole Sodium (Pantoprazole Sodium) 40 Mg Tablet.dr, 40 MG PO DAILY 12/29/15 Amlodipine Besylate (Amlodipine Besylate) 5 Mg Tablet, 5 MG PO DAILY 11/26/15 Lisinopril (Lisinopril) 10 Mg Tablet, 10 MG PO DAILY 11/26/15 Clonazepam (Clonazepam) 1 Mg Tablet, 1 MG PO BID Y for PRN ORDERS 11/09/15 Trazodone HCl (Trazodone HCl) 100 Mg Tablet, 200 MG PO HS 03/26/15 Methylphenidate Hcl (Ritalin) 10 Mg Tablet, 10 MG PO QID 07/19/13 Allergies: Coded Allergies: lactose (Verified Allergy, Severe, 01/03/17) tramadol (Verified Allergy, Severe, CONFUSION,DISTORTED THINKING, 01/03/17) butalbital (Verified Allergy, Intermediate, NAUSEA, 01/03/17) caffeine (Verified Allergy, Intermediate, NAUSEA, 01/03/17) hydromorphone (Verified Allergy, Intermediate, "DREAMS OF RATS", 01/03/17) Sulfa (Sulfonamide Antibiotics) (Verified Allergy, Unknown, BLADDER PAIN, 01/03/17) aripiprazole (Verified Allergy, Unknown, "MULTIPLE SIDE EFFECTS", 01/03/17) PER H&P desvenlafaxine (Verified Allergy, Unknown, 01/03/17) diazepam (Verified Allergy, Unknown, "MAKES PATIENT FEEL HIGH", 01/03/17) PER H&P diphenhydramine (Verified Allergy, Unknown, RESTLESS LEGS, 01/03/17) duloxetine (Verified Allergy, Unknown, 01/03/17) lorazepam (Verified Allergy, Unknown, 01/03/17) nitrofurantoin (Verified Allergy, Unknown, 01/03/17) promethazine (Verified Allergy, Unknown, HYPERACTIVITY, 01/03/17) risperidone (Verified Allergy, Unknown, "MULTIPLE SIDE EFFECTS", 01/03/17) PER H&P desvenlafaxine succinate (Verified Adverse Reaction, Severe, SUICIDAL THOUGHTS, 01/03/17) aspirin (Verified Adverse Reaction, Mild, STOMACH TORN UP, 01/03/17) Family History Family History: CA, DM2, MT Social History Does patient use chewing tobac: No Substance Use Type: does not use Alcohol Intake: none Sexuality: male partner Advance Directives: Yes DPOA for Healthcare Only Review of Systems Constitutional: REPORTS: weight loss (Chronic weight loss concerns reported in ED. ), DENIES: chills, fever Cardiovascular DENIES: chest pain, murmur, orthopnea Vascular: DENIES: pedal edema Pulmonary Respiratory: DENIES: dyspnea, pleuritic chest pain, sputum, tachypnea Comments She did not c/o a cough to me today. GI Upper Abdomen: nausea, DENIES: pain, vomiting Lower Abdomen: diarrhea, DENIES: pain Comments Denies abdominal pain, cramping, radiating into the back. General: DENIES: dysuria, frequency Musculoskeletal Comments Reports chronic neuropathy. Neurological General: DENIES: change in strength, headache, memory disturbances, weakness Psychiatric Psychiatric: depression Endocrine DENIES: heat/cold intolerance All Other Systems All Other Systems: Reviewed (remainder of 10-point ROS Neg.) Physical Exam General General Nourishment: obese, apparent age General Body Habitus: well groomed Vital Signs Vital Signs Date Time Temp Pulse Resp B/P Pulse Ox O2 Delivery O2 Flow Rate FiO2 01/03/17 15:05 95.6 67 18 157/83 94 Room Air Height (Feet): 5 Height (Inches): 3.00 Comments She is in no distress. Able to easily give a history. Edentulous. Eyes Brief: FOUND: EOMI, PERRL, NOT FOUND: scleral icterus ENMT Brief: NOT FOUND: mucosa moist, normal dentition Neck Brief: FOUND: midline, NOT FOUND: JVD, nuchal rigidity, spasm Respiratory Brief: FOUND: clear all law, equal bilaterally, symmetrical, NOT FOUND: rales, wheezes Cardiovascular (brief) Cardiac Brief: FOUND: regular rate, regular rhythm, NOT FOUND: murmur, pedal edema, peripheral edema Abdomen (brief) Abdominal Brief: FOUND: soft, NOT FOUND: distended, tender Comments BS are quiet. Abdomen is soft, NT to light palpation. Lymphatic (brief) Lymphatic Brief: NOT FOUND: adenopathy, lymphedema Musculoskeletal (brief) Musculoskeletal Brief: NOT FOUND: loss of motion, spasm, tenderness Integumentary (brief) Integumentary Brief: FOUND: dry, warm Neurologic RN Documented GCS Eye Opening: Verbal: Motor: Total: Psychiatric (brief) FOUND: alert, attentive, oriented Laboratory Laboratory Tests Test 01/03/17 11:14 01/03/17 12:03 01/03/17 14:03 White Blood Count 6.8T/MM3 Red Blood Count 4.36M/MM3 Hemoglobin 12.7GM/DL Hematocrit 38.9% Mean Corpuscular Volume 89.2UM3 Mean Corpuscular Hemoglobin 29.1UUG Mean Corpuscular Hemoglobin Concent 32.6GM/DL RDW Standard Deviation 43.7FL Platelet Count 246T/MM3 Mean Platelet Volume 10.2UM3 Immature Granulocyte % (Auto) 0.1% Neutrophils (%) (Auto) 76.7% Lymphocytes (%) (Auto) 12.9% Monocytes (%) (Auto) 6.4% Eosinophils (%) (Auto) 3.5% Basophils (%) (Auto) 0.4% Absolute Immature Granulocyte (auto 0.01T/MM3 Absolute Neutrophils (auto) 5.2T/MM3 Absolute Lymphocytes (auto) 0.9T/MM3 Absolute Monocytes (auto) 0.4T/MM3 Absolute Eosinophils (auto) 0.2T/MM3 Absolute Basophils (auto) 0.0T/MM3 Turbidity < 20 Sodium Level 144MEQ/L Potassium Level 3.9MEQ/L Chloride Level 107MEQ/L Carbon Dioxide Level 26MEQ/L Anion Gap 11MEQ/L Blood Urea Nitrogen 18.0MG/DL Creatinine 0.8MG/DL Glomerular Filtration Rate Calc 70 BUN/Creatinine Ratio 23RATIO Glucose Level 94MG/DL Calculated Osmolality 279MOSM/KG Calcium Level 9.1MG/DL Total Bilirubin 0.50MG/DL Icterus Index < 2 Aspartate Amino Transf (AST/SGOT) 19U/L Alanine Aminotransferase (ALT/SGPT) 25U/L Alkaline Phosphatase 69U/L Total Protein 6.6G/DL Albumin 3.8G/DL Globulin 2.8G/DL Albumin/Globulin Ratio 1.4RATIO Lipase 973U/L Chemistry Specimen Hemolysis < 15 Stool Cyclospora species Detection Negative Stool Rotavirus A PCR Negative Stool Adenovirus (PCR) Negative Stool Astrovirus (PCR) Negative Stool Campylobacter PCR Negative Stool C. difficile Toxin (PCR) Negative Stool Cryptosporidium PCR Negative Stool E. coli Shiga Toxins Negative Stool E coli O157 PCR N/a Stool Enterotoxigenic Ecoli PCR Negative Stool Enteropathogenic E. coli (PCR Negative Stool Enteroaggregative E. coli PCR Negative Stool Entamoeba (PCR) Negative Stool Giardia Lamblia PCR Negative Stool Salmonella PCR Negative Stool Sapovirus (PCR) Detected Stool Plesiomonas shigelloides PCR Negative Stool Shigella/EIEC (PCR) Negative Stool Yersinia enterocolitica (PCR) Negative Stool Vibrio (PCR) Negative Stool Vibrio cholera (PCR) Negative Stool Norovirus GI/GII PCR Negative Urine Collection Type Voided-not cc-midstr Urine Color Yellow Urine Turbidity Clear Urine pH 6.5 Urine Specific Noel 1.010 Urine Protein Negative Urine Glucose (UA) Negative Urine Ketones Negative Urine Blood Negative Urine Nitrite Negative Urine Bilirubin Negative Urine Urobilinogen 0.2EU/DL Urine Leukocyte Esterase Negative Urinalysis Comment Microscopic not ind. Radiology CT reviewed- Ileus vs. Gastroenteritis. KUB- ileus? Preliminary results- final is pending. Concerns For Adverse Events Avg Sepsis Diagnostic Criteria Sepsis Confirmed/Suspected Infection: Yes Assessment & Plan Problems: (1) Viral gastroenteritis due to Sapporo agent Status: Acute (2) Elevated lipase Status: Acute (3) Dehydration Status: Acute (4) Hypothyroidism Status: Chronic (5) GERD (gastroesophageal reflux disease) Status: Chronic (6) Depression Status: Chronic Qualifiers: Depression Type: major depressive disorder Major depression recurrence: recurrent (7) Fibromyalgia Status: Chronic (8) Hypertension Status: Chronic Qualifiers: Hypertension type: essential hypertension Qualified Codes: I10 - Essential (primary) hypertension Assessment 01/03/17- Tremaine/Cooper *Sapovirus gastroenteritis- Supportive care. IVF, antiemetics. Pt. is insistent that she wants oral fluids at this point. Denies abdominal pain, which would point away from gastroenteritis. Contact precautions- I did discuss dx with pt. (Not reportable per [facility] website.) *Dehydration- IVF *Elevated Lipase- Given her hx of weight loss, she may need further outpatient evaluation. May be due to gastroenteritis. Chronic diarrhea- consider outpatient GI workup. Recheck labs in AM to ensure lipase is trending down. Abdomen is nontender- I dont think this is acute pancreatitis. *Chronic depression, hx of Psych hospitalization- Restart home meds. *HTN- restart home agents. BP is elevated, and should support restarting her meds. *Obs status- I did offer for pt to take home meds. She reports that she would prefer to use meds here. Overall, she looks fairly good. I would anticipate DC tomorrow. Repeat labs in AM. ADAT in AM if she does ok overnoc. Code Status Full Code Hospital Course Summary Disclaimer The hospital course summary below is not to be considered part of the above Progress Note. Hospital Course Summary 01/03/17- Tremaine/Cooper *Sapovirus gastroenteritis- Supportive care. IVF, antiemetics. Pt. is insistent that she wants oral fluids at this point. Denies abdominal pain, which would point away from gastroenteritis. Contact precautions- I did discuss dx with pt. (Not reportable per [facility] website.) *Dehydration- IVF *Elevated Lipase- Given her hx of weight loss, she may need further outpatient evaluation. May be due to gastroenteritis. Chronic diarrhea- consider outpatient GI workup. Recheck labs in AM to ensure lipase is trending down. *Chronic depression, hx of Psych hospitalization- Restart home meds. *HTN- restart home agents. BP is elevated, and should support restarting her meds. *Obs status- I did offer for pt to take home meds. She reports that she would prefer to use meds here. Overall, she looks fairly good. I would anticipate DC tomorrow. Repeat labs in AM. ADAT in AM if she does ok overnoc. JAME GAMBOA MD 01/03/17 9499: Past Medical History Current Medications Home Meds Reported Medications [restful legs] No Conflict Check, 2 TAB PO HS Y for RESTLESSNESS 01/03/17 Diphenhydramine HCl (Sleep Tablet) 25 Mg Tablet, 25 MG PO HS Y for INSOMNIA 01/03/17 Prochlorperazine Maleate (Compazine) 5 Mg Tablet, 5 MG PO PRN 01/03/17 Hydrocodone/Acetaminophen ([place] 5-325 Tablet) 5-325 Tablet, 1 TAB PO BID Y for PAIN 01/03/17 Clonazepam (Clonazepam) 1 Mg Tablet, 2 MG PO HS 01/03/17 Fluoxetine HCl (Prozac) 40 Mg Capsule, 40 MG PO DAILY 11/19/16 Ondansetron HCl (Ondansetron HCl) 4 Mg Tablet, 8 MG PO BID Y for NAUSEA 11/19/16 Esomeprazole Magnesium (Nexium) 40 Mg Capsule.dr, 40 MG PO DAILY Y for PRN ORDERS 11/19/16 Levothyroxine Sodium (Levothyroxine Sodium) 137 Mcg Tablet, 137 MCG PO ACB 11/19/16 Pantoprazole Sodium (Pantoprazole Sodium) 40 Mg Tablet.dr, 40 MG PO DAILY 12/29/15 Amlodipine Besylate (Amlodipine Besylate) 5 Mg Tablet, 5 MG PO DAILY 11/26/15 Lisinopril (Lisinopril) 10 Mg Tablet, 10 MG PO DAILY 11/26/15 Clonazepam (Clonazepam) 1 Mg Tablet, 1 MG PO BID Y for PRN ORDERS 11/09/15 Trazodone HCl (Trazodone HCl) 100 Mg Tablet, 200 MG PO HS 03/26/15 Methylphenidate Hcl (Ritalin) 10 Mg Tablet, 10 MG PO QID 07/19/13 Allergies: Coded Allergies: lactose (Verified Allergy, Severe, 01/03/17) tramadol (Verified Allergy, Severe, CONFUSION,DISTORTED THINKING, 01/03/17) butalbital (Verified Allergy, Intermediate, NAUSEA, 01/03/17) caffeine (Verified Allergy, Intermediate, NAUSEA, 01/03/17) hydromorphone (Verified Allergy, Intermediate, "DREAMS OF RATS", 01/03/17) Sulfa (Sulfonamide Antibiotics) (Verified Allergy, Unknown, BLADDER PAIN, 01/03/17) aripiprazole (Verified Allergy, Unknown, "MULTIPLE SIDE EFFECTS", 01/03/17) PER H&P desvenlafaxine (Verified Allergy, Unknown, 01/03/17) diazepam (Verified Allergy, Unknown, "MAKES PATIENT FEEL HIGH", 01/03/17) PER H&P diphenhydramine (Verified Allergy, Unknown, RESTLESS LEGS, 01/03/17) duloxetine (Verified Allergy, Unknown, 01/03/17) lorazepam (Verified Allergy, Unknown, 01/03/17) nitrofurantoin (Verified Allergy, Unknown, 01/03/17) promethazine (Verified Allergy, Unknown, HYPERACTIVITY, 01/03/17) risperidone (Verified Allergy, Unknown, "MULTIPLE SIDE EFFECTS", 01/03/17) PER H&P desvenlafaxine succinate (Verified Adverse Reaction, Severe, SUICIDAL THOUGHTS, 01/03/17) aspirin (Verified Adverse Reaction, Mild, STOMACH TORN UP, 01/03/17) Assessment & Plan Problems: (1) Viral gastroenteritis due to Sapporo agent Status: Acute (2) Elevated lipase Status: Acute (3) Dehydration Status: Acute (4) GERD (gastroesophageal reflux disease) Status: Chronic (5) Hypertension Status: Chronic Qualifiers: Hypertension type: essential hypertension Qualified Codes: I10 - Essential (primary) hypertension (6) Hypothyroidism Status: Chronic (7) Fibromyalgia Status: Chronic (8) Depression Status: Chronic Qualifiers: Depression Type: major depressive disorder Major depression recurrence: recurrent (9) Obesity (BMI 30-39.9) Status: Chronic Plan/Intensity of Service Have independently interviewed and examined pt. Chart reviewed. Case discussed with ED provider and my FUNERAL PLANNING COUNSELOR. Care plan developed with my supervision; agree with above. Notes increased nausea and loose stools (always has nausea, but symptoms worsen 2 days ago). Passing copious amounts of watery stool. Ab cramping and bloating. Breathing stable. No chest pain. Lungs: clear bilaterally CV: regular AB: soft Obese nd, mild/diffuse tenderness BS present MSE: awake alert appropriate Plan: OBS, IVF for support, clear liquids, control nausea, continue home medications, SCD for DVT prevention, monitor lab. DVT Prophylaxis: SCD'S KYLIE LANDAVERDE FUNERAL PLANNING COUNSELOR Jan 03, 2017 16:40 JAME GAMBOA MD Jan 03, 2017 17:55
[2017-01-03] MEDS: METHYLPHENIDATE 10 MG TABLET PO SCH ×2 (17:33→20:56)
[2017-01-03] MEDS ORDERED: MILK OF MAGNESIA 30 ML SUSP PO PRN (17:45)
[2017-01-03] MEDS ORDERED: NITROGLYCERIN 0.4 MG SUBLINGUAL TABLET SL PRN (17:45)
[2017-01-03] MEDS ORDERED: ACETAMINOPHEN 325 MG TABLET PO PRN (17:45)
[2017-01-03] MEDS ORDERED: BISACODYL 10 MG SUPPOSITORY RECTALLY PRN (17:45)
[2017-01-03] MEDS ORDERED: PRN ORDERS MC (17:45)
--- NOTE | 2017-01-03 18:02 | NUR ---
Status Patient resting quietly in bed. present at bedside. Oral swabs provided for comfort due to NPO status. Patient reports she falls almost daily at home and understands to call staff to help her when she needs to get up. Patient was assisted to BSC earlier in shift and tolerated activity well. Bed alarm on.
[2017-01-03 20:00] VITALS: PULSE 67; RESP 18
[2017-01-03] MEDS ORDERED: CLONAZEPAM 1 MG TABLET PO SCH (22:00)
[2017-01-03] MEDS ORDERED: TRAZODONE 100 MG TABLET PO SCH (22:00)
[2017-01-03] MEDS: HYDROCODONE/APAP 5 mg/325 mg TABLET PO PRN (22:50)
[2017-01-03 23:05] VITALS: BP 160/79; PULSE 60; RESP 18; TEMP 98.1
--- NOTE | 2017-01-04 05:39 | NUR ---
Shift summary Pt is alert and oriented x 3, with mild confusing. Calls for needs PRN and to use the BSC. No stool this shift, small smear in pull up. Pt took HS medications but was unable to sleep. At times she repeats the same questions. She was very anxious at the start of the shift. Denies abd pain or SOA. Call light within reach. Pt up in the recliner with chair alarm on.
[2017-01-04 05:42] LABS: BASOPHILS % (AUTO) 0.2 % (0-2); EOSINOPHILS % (AUTO) 0.2 % (0-4); HCT - HEMATOCRIT 36.9 % (36-46); HGB - HEMOGLOBIN 11.7 GM/DL (12-16); IMMATURE GRANULOCYTE # (AUTO) 0.01 T/MM3 (0.00-0.03); IMMATURE GRANULOCYTE % (AUTO) 0.2 % (0.0-0.5); LYMPHOCYTES % (AUTO) 15.9 % (23-45); MEAN CORPUSCULAR HGB 28.1 UUG (26-34); MEAN CORPUSCULAR HGB CONC(MCHC 31.7 GM/DL (31-37); MEAN CORPUSCULAR VOLUME 88.5 UM3 (80-100); MEAN PLATELET VOLUME 10.3 UM3 (9.4-12.4); MONOCYTES # (AUTO) 0.4 T/MM3 (0-0.8); MONOCYTES % (AUTO) 6.3 % (0-9.0); NEUTROPHILS #(AUTO)-ABSOLUTE 4.7 T/MM3 (1.8-7.7); NEUTROPHILS % (AUTO) 77.2 % (33-66); RED BLOOD COUNT 4.17 M/MM3 (4.00-5.20)
[2017-01-04 05:51] LABS: ALBUMIN 3.3 G/DL (3.5-5.0); ALBUMIN/GLOBULIN RATIO 1.3 RATIO (1.1-2.2); ALKALINE PHOSPHATASE 59 U/L (38-126); ALT (SGPT) 28 U/L (9-52); ANION GAP 11 MEQ/L (5-15); AST (SGOT) 16 U/L (14-36); BUN/CREATININE RATIO 26 RATIO (6-26); CALCIUM 8.6 MG/DL (8.4-10.2); CHLORIDE 108 MEQ/L (98-107); CO2 - CARBON DIOXIDE 22 MEQ/L (22-30); CREATININE 0.7 MG/DL (0.7-1.2); GLOMERULAR FILTRATION RATE 82; GLUCOSE 82 MG/DL (65-110); LIPASE 155 U/L (23-300); MAGNESIUM 2.1 MG/DL (1.6-2.3); POTASSIUM 4.1 MEQ/L (3.6-5); SODIUM 141 MEQ/L (134-144); TOTAL PROTEIN 5.8 G/DL (6.3-8.2)
[2017-01-04] MEDS ORDERED: LEVOTHYROXINE 137 MCG TABLET PO SCH (06:30)
[2017-01-04] MEDS ORDERED: PANTOPRAZOLE 40 MG TABLET PO SCH (07:30)
[2017-01-04 07:38] VITALS: BP 161/97; PULSE 67; RESP 18; TEMP 95.9; O2SAT 99
[2017-01-04] MEDS: 1/2 NS w/ KCL 20mEq 1,000 ML IV SCH ×2 (08:38→14:30)
[2017-01-04] MEDS: METHYLPHENIDATE 10 MG TABLET PO SCH ×3 (08:45→17:05)
[2017-01-04] MEDS ORDERED: AMLODIPINE 5 MG TABLET PO SCH (09:00)
[2017-01-04] MEDS ORDERED: FLUOXETINE 20 MG CAPSULE PO SCH (09:00)
[2017-01-04] MEDS ORDERED: LISINOPRIL 10 MG TABLET PO SCH (09:00)
--- NOTE | 2017-01-04 09:33 | DI ---
Indication: ITS.REASON: pancreatitis PROCEDURE: CT ABD/PELVIS W/CONTRAST ONLY: Encounter: Initial Comparison: September 13, 2015 Technique: Axial CT images were performed through the abdomen and pelvis after the administration of intravenous contrast. Coronal and sagittal two-dimensional reformats. Automated Exposure Control and Iterative Reconstruction dose reducing techniques were utilized. Contrast: Omnipaque 300 100 mL Findings: Mild scarring or fibrosis in the lung bases. The liver is normal. Gallbladder is surgically absent. The spleen, pancreas and adrenal glands are within normal limits. Prominent duodenal diverticulum again seen. Bilateral renal cysts. No abdominal or pelvic adenopathy. The bladder is normal. Uterus is absent. Sigmoid diverticulosis without evidence of acute diverticulitis. Fluid-filled small and large bowel loops could represent a gastroenteritis. No evidence of bowel obstruction. The appendix is normal. Bone windows are unchanged. Impression: 1. No CT evidence to suggest acute pancreatitis. 2. Findings of gastroenteritis. There is a preliminary report by [facility]. .
--- NOTE | 2017-01-04 09:38 | NUR ---
Status Patient up to recliner. States she has had no BM. No complaints of nausea or abd cramping. Requests food. Patient advanced to a clear liq diet. states he thinks he has what she has just not to her extent. Encouraged to wear gloves, shoe covers. Also encouraged to use Clorox to clean around house. Patient hoping to go home today.
--- NOTE | 2017-01-04 09:38 | DI ---
Indication: ITS.REASON: diarrhea, abdominal pain diarrhea, abdominal pain PROCEDURE: KUB W/UPRIGHT: Encounter: Initial Comparison: CT abdomen and pelvis from the same date Findings: The visualized lung bases are clear. There is no free air on the upright view. The bowel gas pattern is nonobstructive and nonspecific. Gas is seen in nondilated small and large bowel to the level of the rectum. Small small bowel and colonic air-fluid levels. Cholecystectomy clips. Pelvic phleboliths. Impression: Nonobstructive nonspecific bowel gas pattern. .
[2017-01-04] MEDS: MAG-AL + SIM LIQUID 30 ML UDC PO PRN ×2 (10:56→14:17)
--- NOTE | 2017-01-04 11:10 | NUR ---
Maalox Patient requests something for indigestion. She states she always has stomach problems. Maalox given.
[2017-01-04] MEDS: HYDROCODONE/APAP 5 mg/325 mg TABLET PO PRN (14:18)
[2017-01-04 15:06] VITALS: BP 169/94; PULSE 70; RESP 17; TEMP 95.3; O2SAT 98
--- NOTE | 2017-01-04 17:10 | PNPDOC ---
Subjective Date DATE: 01/04/17 TIME: 17:05 Subjective F/U: Viral Gastroenteritis Doing better today. Diarrhea resolved. Taking oral well. No nausea. Some ab pain. No f/c. Breathing well. No chest pain. Not unsteady when up and ambulatory. Urinating well. Unfortunately, sick with loose stools. Objective Vital Signs Vital signs Vital Signs Date Time Temp Pulse Resp B/P Pulse Ox O2 Delivery O2 Flow Rate FiO2 01/04/17 15:06 95.3 70 17 169/94 98 Room Air Height (Feet): 5 Height (Inches): 3.00 Weight (Kilograms): 84.900 General General Appearance: Alert, Obese, Orientated x 3, Well Nourished, Well Developed, Cooperative, No Acute Distress, Looks Stated Age Eyes (Brief) Eyes: FOUND: EOMI, PERRL, NOT FOUND: scleral icterus ENMT (Brief) ENMT: FOUND: hearing intact, mucosa moist Neck (Brief) Neck: FOUND: midline, NOT FOUND: nuchal rigidity, spasm Respiratory (Brief) Respiratory: FOUND: clear all law, equal bilaterally, NOT FOUND: rales, wheezes Cardiovascular (Brief) Cardiac: FOUND: regular rate, regular rhythm Abdomen (Brief) Abdominal: FOUND: BS normo active x4, soft, NOT FOUND: distended Extremities (Brief) Extremity : Side: Bilateral Extremity: leg Extremity Finding: NOT FOUND: edema Musculoskeletal (Brief) Musculoskeletal: FOUND: extremities move equally, NOT FOUND: deformity, spasm Integumentary (Brief) Integumentary: FOUND: dry, warm Neurologic (Brief) Neurological: FOUND: cranial 2-12 intact, motor (Intact ) Psychiatric (Brief) Psychiatric: FOUND: alert, attentive, normal affect, oriented Laboratory Laboratory Laboratory Tests 01/03/17 11:14 01/04/17 05:08 Laboratory Tests 01/03/17 11:14 01/04/17 05:08 Microbiology Microbiology Microbiology Date/Time Source Procedure Growth Status 01/03/17 11:27 Peripheral/Iv Start Blood Culture - Preliminary NO GROWTH AFTER 24 HOURS Resulted 01/03/17 11:16 Peripheral/Iv Start Blood Culture - Preliminary NO GROWTH AFTER 24 HOURS Resulted Sepsis Diagnostic Criteria Sepsis Confirmed/Suspected Infection: Yes Assessment & Plan Problems: (1) Viral gastroenteritis due to Sapporo agent Status: Acute (2) Elevated lipase Status: Resolved Assessment & Plan: Secondary to gastroenteritis. (3) Dehydration Status: Resolved (4) GERD (gastroesophageal reflux disease) Status: Chronic (5) Hypertension Status: Chronic Qualifiers: Hypertension type: essential hypertension Qualified Codes: I10 - Essential (primary) hypertension (6) Hypothyroidism Status: Chronic (7) Fibromyalgia Status: Chronic (8) Depression Status: Chronic Qualifiers: Depression Type: major depressive disorder Major depression recurrence: recurrent (9) Obesity (BMI 30-39.9) Status: Chronic Plan/Intensity of Service Will d/c to home. Medically stable. Diet as tolerated. Continue chronic medications. F/U with Dr LOPEZ in 1 week. See orders for details. DVT Prophylaxis: SCD'S Code Status Full Code Hospital Course Summary Disclaimer The hospital course summary below is not to be considered part of the above Progress Note. Hospital Course Summary 01/03/17- Tremaine/Cooper *Sapovirus gastroenteritis- Supportive care. IVF, antiemetics. Pt. is insistent that she wants oral fluids at this point. Denies abdominal pain, which would point away from gastroenteritis. Contact precautions- I did discuss dx with pt. (Not reportable per [facility] website.) *Dehydration- IVF *Elevated Lipase- Given her hx of weight loss, she may need further outpatient evaluation. May be due to gastroenteritis. Chronic diarrhea- consider outpatient GI workup. Recheck labs in AM to ensure lipase is trending down. *Chronic depression, hx of Psych hospitalization- Restart home meds. *HTN- restart home agents. BP is elevated, and should support restarting her meds. *Obs status- I did offer for pt to take home meds. She reports that she would prefer to use meds here. Overall, she looks fairly good. I would anticipate DC tomorrow. Repeat labs in AM. ADAT in AM if she does ok overnoc. 4/2 Doing better today. Diarrhea resolved. Taking oral well. No nausea. Some ab pain. No f/c. Breathing well. No chest pain. Not unsteady when up and ambulatory. Urinating well. Unfortunately, sick with loose stools. Will d/c to home. Medically stable. Diet as tolerated. Continue chronic medications. F/U with Dr LOPEZ in 1 week. See orders for details. JAME AM MD Jan 04, 2017 17:09
--- NOTE | 2017-01-04 17:51 | NUR ---
Meds Patient's home medications given to patient.
--- NOTE | 2017-01-04 18:00 | NUR ---
Discharge Patient discharged to home. Instructions gone over with patient, questions answered. IV dc'd, cath intact.
--- NOTE | 2017-01-05 07:35 | DSF ---
Date of initiation of observation: 01/03/2017. Date of discharge: 01/04/2017. \ ADMISSION DIAGNOSIS Gastroenteritis. DISCHARGE DIAGNOSIS Viral gastroenteritis due Sapporo agent. ASSOCIATED CONDITIONS AND COMPLICATIONS Elevated lipase - resolved; secondary to gastroenteritis. Dehydration - resolved. GERD. Hypertension. Hypothyroidism. Fibromyalgia. Depression. Obesity. PROCEDURES None. CONSULTS None. CLINICAL RESUME The patient is a 71-year-old female who presents to [facility] secondary to diarrhea. She has been having nausea, vomiting, diarrhea and abdominal cramping. She has had slight fever over the past two days. She has a significant medical history including fibromyalgia with MS-like symptoms along with frequent falls and sphincter incontinence. She has been frustrated as she has had this diarrhea and it seems to run constantly. has not been sick. She does report she frequently has abdominal pain, nausea and cramping. It is uncertain if this is related to any foods. In emergency room she was evaluated. Her white count is normal and electrolytes are looking unremarkable. She is not tachycardic or hypotensive. Lipase was elevated at 973. Urine shows no evidence of infection. In light of the patient's significant diarrhea, hospitalist service was notified and patient was subsequently placed in outpatient observation for further evaluation and treatment. For complete details of the hospital course, refer to that document. LABORATORY White blood count is 6.8 with hemoglobin 12.7, hematocrit 38.9, MCV 89.2 and platelets to 246,000. Serum sodium is 144, potassium 3.9, chloride 107, CO2 26, BUN 18 with creatinine 0.8, GFR 70 and blood glucose 94. Transaminases are unremarkable. Lipase is 973. UA is remarkable only for low specific gravity at 1.010. Stool PCR panel is positive for Sapovirus. HOSPITAL COURSE The patient was placed in outpatient observation status at [facility] under the care of Dr. Gamboa. She was placed in contact precautions in light of her viral gastroenteritis. This is not reportable to [facility]. IV fluids were initiated for hydration. Home medications were continued. Lab was monitored. Overall her hospital course was one of very good improvement. Initially she was started on a clear liquid diet and tolerated this well. Diet was later advanced to regular and well tolerated. Lab was monitored and her electrolytes, renal function and liver enzymes remained normal. Lipase did normalize. White count remained normal as well. She was not hypotensive during the hospitalization. Respiratory status did well. By day of discharge she was eating, drinking, breathing and ambulating well. Vitals were stable and she was afebrile. Her loose stool had significantly defervesced. We discussed about discharge to home and she felt agreeable to this. She was therefore able to be discharged to home in stable condition. Narrative disclaimer: Above narrative is a brief summary of the patient's hospitalization; for complete details of the hospital course, refer to the medical record. DISCHARGE CONDITION Stable/good. DIET As tolerated. ACTIVITIES As tolerated. MEDICATIONS Norvasc 5 mg daily. Clonazepam 1 mg b.i.d. p.r.n. Clonazepam 2 mg q.h.s. Diphenhydramine 25 mg q.h.s. p.r.n. insomnia. Nexium 40 mg daily p.r.n. Prozac 40 mg daily. [place] 5/325 b.i.d. p.r.n. Synthroid 0.137 mg daily. Lisinopril 10 mg daily. Ritalin 10 mg q.i.d. Zofran 8 mg b.i.d. p.r.n. Protonix 40 mg daily. Compazine 5 mg p.r.n. Trazodone 200 mg q.h.s. No new medications were started - above medications are what patient listed at presentation. FOLLOWUP The patient will follow with Dr. Lara in one week, calling or returning sooner as problems or need indicate. INSTRUCTION TO PATIENT Patient was instructed on her diagnosis and treatments provided. We encouraged her on plenty of oral intake to maintain hydration. She may use sport drink or Pedialyte in case she has loose stool. We encouraged to advance diet as she feels able. Encouraged her to work on increasing her ambulatory ability. She will watch for temperature greater than 100.7. If she develops intractable nausea or diarrhea, she will notify her provider promptly. Should other problems or need occur she could be in contact with her primary provider. If symptoms become quite dire she can present to emergency room for acute evaluation. She voiced understanding of the above. Time spent with discharge greater than 35 minutes. MTDD
[2017-01-05] MEDS ORDERED: FLUOXETINE 40 MG CAPSULE PO SCH (09:00)
== END 2017-01-04 18:02 | disposition home or self-care (01) ==
LOC: ED 09:56 → EDHOLD 14:57 → MED 15:00
PROVIDERS: ADMIT Hospitalist; ATTEND Hospitalist
DX: A08.39 Other viral enteritis (principal); R74.8 Abnormal levels of other serum enzymes; E86.0 Dehydration; K21.9 Gastro-esophageal reflux disease without esophagitis; I10 Essential (primary) hypertension; E03.9 Hypothyroidism, unspecified; M79.7 Fibromyalgia; E66.9 Obesity, unspecified; Z68.33 Body mass index [BMI] 33.0-33.9, adult; G47.33 Obstructive sleep apnea (adult) (pediatric); I25.10 Atherosclerotic heart disease of native coronary artery without angina pectoris; I25.2 Old myocardial infarction; K58.1 Irritable bowel syndrome with constipation; F41.9 Anxiety disorder, unspecified; F33.9 Major depressive disorder, recurrent, unspecified; Z87.01 Personal history of pneumonia (recurrent); Z87.440 Personal history of urinary (tract) infections; R29.6 Repeated falls; F03.90 Unspecified dementia, unspecified severity, without behavioral disturbance, psychotic disturbance, mood disturbance, and anxiety; Z79.899 Other long term (current) drug therapy
CPT/HCPCS: 36415; 74020; 74177; 80053; 81003; 83690; 83735; 85025; 87040; 87507; 96361; 96374; 96375; 99284; A9270; G0378; J0780; J1100; J1885; J2405; J7030; J7050; Q9967; 99218

== ENCOUNTER → 2017-01-07 | Outpatient (CLI) | payer MEDICARE, OTHER ==
[~2017-01-07] MED LIST changes: -CLON1TAB23 PO; +DIPH25TA45 PO; -DOXY100T2 PO; -HYDR-4072 PO; +HYDR-4246 PO; +ONABOTULINUM TOXIN A 100 UNIT IM ONE; +PROC5TAB59 PO; +restful legs PO
== END ==
LOC: NEU 11:51
PROVIDERS: ATTEND Psychiatry & Neurology Neurology
DX: G43.719 Chronic migraine without aura, intractable, without status migrainosus (principal)
CPT/HCPCS: 64615; J0585

== ENCOUNTER → 2017-01-16 | Outpatient (CLI) | payer MEDICARE, OTHER ==
[~2017-01-16] MED LIST changes: -ONABOTULINUM TOXIN A 100 UNIT IM ONE
[2017-01-16 09:32] LABS: ANION GAP 13 MEQ/L (5-15); BUN/CREATININE RATIO 17 RATIO (6-26); CALCIUM 9.5 MG/DL (8.4-10.2); CHLORIDE 104 MEQ/L (98-107); CO2 - CARBON DIOXIDE 28 MEQ/L (22-30); CREATININE 0.9 MG/DL (0.7-1.2); GLOMERULAR FILTRATION RATE 61; GLUCOSE 106 MG/DL (65-110); LIPASE 38 U/L (23-300); SODIUM 145 MEQ/L (134-144)
== END ==
LOC: LAB 09:04
PROVIDERS: ATTEND Physician Assistant
DX: E03.1 Congenital hypothyroidism without goiter (principal); E87.6 Hypokalemia
CPT/HCPCS: 36415; 80048; 83690; 84439; 84443

== ENCOUNTER 2017-01-23 07:22 | Emergency (ER) | payer MEDICARE, OTHER ==
[~2017-01-23] VITALS: Ht 160 cm; Wt 85.0 kg
[2017-01-23 07:24] VITALS: Ht 160 cm; Wt 85.0 kg
--- OUTSIDE RECORDS SUMMARY | 2017-01-23 07:26 | XMS REPORT | Continuity of Care Document ---
Author Author [facility] Organization [facility] Address Unknown Phone Unavailable Care Team Providers Care Tool Programmer Name Role Phone Nellie Dodson Primary Care Physician Unavailable Source Comments Some departments are not documenting in the electronic medical record. If you do not see the information that you expected, contact Release of Information in the Health Information Management department at [phone] for further assistance in locating additional records.[facility] Active Allergies and Adverse Reactions Allergen Noted [...]
--- OUTSIDE RECORDS SUMMARY | 2017-01-23 07:27 | XMS REPORT ---
Author Author [facility] Organization Unknown Address Unknown Phone Unavailable Care Team Providers Care Manager Oracle Retail Name Role Phone UNASSIGNED DOCTOR , DOCTOR PP [phone] Reason For Visit Reason for Visit from [...] schedule GEMMA * Address # 1 : [facility]: [address], [address], [place] [...] the responsibility of the patient or patient merchandising representative to confirm the list of medications [...]
--- OUTSIDE RECORDS SUMMARY | 2017-01-23 07:27 | XMS REPORT ---
Author Author [facility] Organization Unknown Address Unknown Phone Unavailable Care Team Providers Care Prevention Coordinator Name Role Phone UNASSIGNED DOCTOR , DOCTOR PP [phone] Reason For Visit Reason for Visit from [...] carlitos Sampson * Address # 1 : [facility]: [address], [address], [place] [...] the responsibility of the patient or patient physician relations representative to confirm the list of medications [...]
--- OUTSIDE RECORDS SUMMARY | 2017-01-23 07:27 | XMS REPORT | Continuity of Care Document ---
Author Author [facility] Organization [facility] Address Unknown Phone Unavailable Allergies Active Description [...] BENITES 2449 HYPOTHYROIDISM NOS 06/04/2015 EMILIA BENITES 04607 RECURR DEPR PSYCHOS-MOD 06/04/2015 EMILIA BENITES 36431 RECUR DEPR PSYCH-SEVERE 06/04/2015 EMILIA BENITES 09126 ANXIETY STATE NOS 06/04/2015 EMILIA BENITES 91995 BORDERLINE PERS DISORDER 06/04/2015 EMILIA BENITES 4019 HYPERTENSION NOS 06/04/2015 EMILIA BENITES 35997 ESOPHAGEAL REFLUX 10/11/2015 F F32.9 Major depressive disorder, single episode, unspecified Fifi Ram 10/12/2015 F F32.9 Major depressive disorder, single episode, unspecified Lanny Morales Procedures Code [place] [address] [facility] METABOLIC PANEL VIRIDIANA CALDERON MD 11/21/2013 38186 ASSAY OF AMYLASE VIRIDIANA CALDERON MD 11/21/2013 80369 COMPLETE CBC, AUTOMATED VIRIDIANA CALDERON MD 11/21/2013 [...] 32.0 G/DL 32.0-36.0 MCV 85.7 FL 81-99 [place] # 0.79 x10^3 0.0-0.8 [place] % 9.5 % 1.0-9.0 MPV 10.6 FL [...] Status Pt. Type Provider Facility Loc./Unit Complaint [id number] 07/21/2012 21:29:00 2011 01:50:00 DIS Emergency Skyler HERRMANN, Oscar Luciano [facility] on [facility]
--- NOTE | 2017-01-23 07:46 | NUR ---
PROVIDER DR. VILLALOBOS IN ROOM WITH PT.
--- NOTE | 2017-01-23 07:57 | NUR ---
CT PT TO CT PER COT.
--- OUTSIDE RECORDS SUMMARY | 2017-01-23 07:57 | XMS REPORT | Continuity of Care Document ---
Author Author [facility] Organization [facility] Address Unknown Phone Unavailable Care Team Providers Care Shovel Loader Operator Name Role Phone Nellie Dodson Primary Care Physician Unavailable Source Comments Some departments are not documenting in the electronic medical record. If you do not see the information that you expected, contact Release of Information in the Health Information Management department at [phone] for further assistance in locating additional records.[facility] Active Allergies and Adverse Reactions Allergen Noted [...]
--- OUTSIDE RECORDS SUMMARY | 2017-01-23 07:58 | XMS REPORT ---
Author Author [facility] Organization Unknown Address Unknown Phone Unavailable Care Team Providers Care Marketing Graphics Specialist Name Role Phone UNASSIGNED DOCTOR , DOCTOR PP [phone] Reason For Visit Reason for Visit from [...] carlitos Sampson * Address # 1 : [facility]: [address], [address], [place] [...] the responsibility of the patient or patient call center support representative to confirm the list of medications [...]
--- OUTSIDE RECORDS SUMMARY | 2017-01-23 07:58 | XMS REPORT | Continuity of Care Document ---
Author Author [facility] Organization [facility] Address Unknown Phone Unavailable Allergies Active [...] BENITES 2449 HYPOTHYROIDISM NOS 06/04/2015 EMILIA BENITES 96657 RECURR DEPR PSYCHOS-MOD 06/04/2015 EMILIA BENITES 08097 RECUR DEPR PSYCH-SEVERE 06/04/2015 EMILIA BENITES 49679 ANXIETY STATE NOS 06/04/2015 EMILIA BENITES 85475 BORDERLINE PERS DISORDER 06/04/2015 EMILIA BENITES 4019 HYPERTENSION NOS 06/04/2015 EMILIA BENITES 21984 ESOPHAGEAL REFLUX 10/11/2015 F F32.9 Major depressive disorder, single episode, unspecified Fifi Ram 10/12/2015 F F32.9 Major depressive disorder, single episode, unspecified Lanny Morales Procedures Code [place] [address] [facility] METABOLIC PANEL VIRIDIANA CALDERON MD 11/21/2013 23533 ASSAY OF AMYLASE VIRIDIANA CALDERON MD 11/21/2013 83744 COMPLETE CBC, AUTOMATED VIRIDIANA CALDERON MD 11/21/2013 [...] 32.0 G/DL 32.0-36.0 MCV 85.7 FL 81-99 [place] # 0.79 x10^3 0.0-0.8 [place] % 9.5 % 1.0-9.0 MPV 10.6 FL [...] Status Pt. Type Provider Facility Loc./Unit Complaint [id number] 07/21/2012 21:29:00 2011 01:50:00 DIS Emergency Skyler HERRMANN, Oscar Luciano [facility] on [facility]
--- OUTSIDE RECORDS SUMMARY | 2017-01-23 07:59 | XMS REPORT ---
Author Author [facility] Organization Unknown Address Unknown Phone Unavailable Care Team Providers Care Belt Sander Stone Name Role Phone UNASSIGNED DOCTOR , DOCTOR PP [phone] Reason For Visit Reason for Visit from [...] schedule GEMMA * Address # 1 : [facility]: [address], [address], [place] [...] the responsibility of the patient or patient manufacturers service representative to confirm the list of medications [...]
--- NOTE | 2017-01-23 08:05 | NUR ---
CT RETURN/AMBULATION PT RETURNED FROM CT. PT ASSISTED HERSELF TO RESTROOM WITHOUT DIFFICULITES.
--- NOTE | 2017-01-23 08:13 | DI ---
Indication: ITS.REASON: Headache PROCEDURE: CT HEAD W/O CONTRAST: Encounter: Initial Comparison: November 19, 2016 Technique: Axial CT images through the head were performed without contrast. Iterative Reconstruction dose reducing technique was utilized. FINDINGS: Mild atrophy. Old left cerebellar infarct. The ventricles are of normal size, shape, and contour for the patient's age. There are scattered areas of low attenuation in the white matter which most likely represent changes from chronic microvascular ischemia. The brainstem, cerebellum, and cerebral hemispheres otherwise have a normal morphology and CT attenuation. There is no evidence of midline displacement. No hemorrhage, signs of acute territorial stroke, mass effect, mass lesions, or edema is evident. The visualized portions of the skull base, midface, and calvarium demonstrate no abnormality. The paranasal sinuses are well aerated and free of significant disease. The tympanic and mastoid cavities appear normal. IMPRESSION: No acute intracranial abnormality or hemorrhage. Stable head CT. .
[2017-01-23] MEDS ORDERED: ONDANSETRON ODT 4 MG TAB PO ONE (08:30)
[2017-01-23] MEDS ORDERED: HYDROCODONE/APAP 5 mg/325 mg TABLET PO ONE (08:30)
[2017-01-23] MEDS ORDERED: HYDR-4246 PO (09:02)
[2017-01-23] MEDS ORDERED: ONDA4TAB7 PO (09:02)
--- NOTE | 2017-01-23 09:03 | ERPDOC ---
Departure Disposition Decision Date: Jan 23, 2017 Disposition Decision Time: 09:01 Disposition: 01 DISCHARGED HOME, SELF-CARE Impression Impression Impression: Primary Impression: Migraine Qualified Codes: G43.909 - Migraine, unspecified, not intractable, without status migrainosus Severity: Moderate Condition: Improved Seen By: Physician only Referrals: MARTHA MADERA (Family) 2 Days Patient Instructions: Migraine Headache (ED) Problems/Meds/Labs Reviewed?: Yes Medications reviewed and manag: Yes Follow up care ordered?: Yes Mental Status: Alert, Oriented Scripts Hydrocodone/Acetaminophen (Viola 5-325 Tablet) 5-325 Tablet 1 TAB PO Q4HR Y for PAIN for 2 Days, #12 TAB 0 Refills Prov: TAVO VILLALOBOS DO 01/23/17 Ondansetron (Zofran Odt) 4 Mg Tab.rapdis 4 MG PO Q4HR Y for NAUSEA &/OR VOMITING for 3 Days, #18 TAB 0 Refills Prov: TAVO VILLALOBOS DO 01/23/17 HPI - Headache General Chief Complaint: Headache Stated Complaint: MIGRAINE Time Seen by Provider: 07:40 Source: patient Exam Limitations: no limitations HPI - Headache Initial Comments 71-year-old female presents to the emergency department with a chief complaint of a typical exacerbation of her migraine headaches. Patient has a long- standing history of headaches. She states that this is a typical headache without any deviation from her standard headache. Headache is posterior. Headache is moderate in nature. There is no radiation. She does note some improvement of symptoms after taking a oral Compazine and hydrocodone tablet this morning. Patient denies any other complaints or associated symptoms. She was at home when the headache began earlier this morning. Headache is had a gradual progression in nature since onset. She denies any other complaints or associated symptoms. Occurred At: home Onset: Gradual Allergies: Coded Allergies: lactose (Verified Allergy, Severe, 01/03/17) tramadol (Verified Allergy, Severe, CONFUSION,DISTORTED THINKING, 01/03/17) butalbital (Verified Allergy, Intermediate, NAUSEA, 01/03/17) caffeine (Verified Allergy, Intermediate, NAUSEA, 01/03/17) hydromorphone (Verified Allergy, Intermediate, "DREAMS OF RATS", 01/03/17) Sulfa (Sulfonamide Antibiotics) (Verified Allergy, Unknown, BLADDER PAIN, 01/03/17) aripiprazole (Verified Allergy, Unknown, "MULTIPLE SIDE EFFECTS", 01/03/17) PER H&P desvenlafaxine (Verified Allergy, Unknown, 01/03/17) diazepam (Verified Allergy, Unknown, "MAKES PATIENT FEEL HIGH", 01/03/17) PER H&P diphenhydramine (Verified Allergy, Unknown, RESTLESS LEGS, 01/03/17) duloxetine (Verified Allergy, Unknown, 01/03/17) lorazepam (Verified Allergy, Unknown, 01/03/17) nitrofurantoin (Verified Allergy, Unknown, 01/03/17) promethazine (Verified Allergy, Unknown, HYPERACTIVITY, 01/03/17) risperidone (Verified Allergy, Unknown, "MULTIPLE SIDE EFFECTS", 01/03/17) PER H&P desvenlafaxine succinate (Verified Adverse Reaction, Severe, SUICIDAL THOUGHTS, 01/03/17) aspirin (Verified Adverse Reaction, Mild, STOMACH TORN UP, 01/03/17) Past History Patient Surgical History GB PPM Heart Cath Tubal Hyst Knee Past Medical History Metabolic: hypertension, hypothyroidism ENMT: sleep apnea Cardiac: CAD, CT Respiratory: pneumonia GI: GERD, IBS Female: UTI Neurological: cerebral aneurysm, headaches, migraines Psychological: anxiety, depression Surgical History General: gallbladder Cardiac: pacemaker Reproductive/: hysterectomy Joint: knee Family History Family PMH: FOUND: CHF, cancer Vaccines Hx Influenza Vaccination: No Hx Pneumococcal Vaccination: Yes (Fall 2013 ) Hx Tetanus, Diptheria, Pertuss: No Social History Smoking Status: Never smoker Does patient use chewing tobac: No Substance Use Type: does not use Alcohol Intake: none Sexuality: male partner Review of Systems Constitutional Constitutional: DENIES: chills, fever Eyes General: DENIES: erythema, exudate Lids/Accessories: DENIES: erythema, swelling Vision: DENIES: acuity, blurring ENMT Ears: DENIES: drainage, erythema Hearing: DENIES: hearing loss Balance: DENIES: ataxia, falling to one side Sinuses: DENIES: congestion, pain Nose: DENIES: nosebleeds, pain Mouth/Throat: DENIES: painful swallowing, sore throat Teeth: DENIES: pain Jaw: DENIES: pain Cardiovascular Cardiac: DENIES: chest pain, dyspnea on exertion Rhythm/Rate: DENIES: irregular beat, palpitations Vascular: DENIES: pedal edema, unilateral swelling Pulmonary Respiratory: DENIES: cough, dyspnea, pleuritic chest pain, sputum GI Upper Abdomen: DENIES: nausea, pain, vomiting Lower Abdomen: DENIES: diarrhea, pain General: DENIES: dysuria, frequency Musculoskeletal General: DENIES: joint pain, tenderness Neurological General: headache (typical), DENIES: numbness, weakness Psychiatric Psychiatric: DENIES: emotional instability, suicidal ideation/attempt Endocrine Endocrine: DENIES: polydipsia, polyphagia Hematologic/Lymphatic Hematologic/Lymphatic: DENIES: frequent nosebleeds, lymphadenopathy Allergic/Immunological Allergic/Immunoligical: DENIES: allergic reactions, hives Physical Exam General General Nourishment: well nourished, well developed, appears stated age, no acute distress, adult General Body Habitus: well groomed Vitals and Pain First Documented Vital Signs Date Time Temp Pulse Resp B/P Pulse Ox O2 Delivery O2 Flow Rate FiO2 01/23/17 07:24 97.4 64 14 183/84 95 Room Air Weight: Kilograms: 85.000 Height (feet): 5 Height (inches): 3.00 Triage Pain Scale: RN VS reviewed by Provider: Yes Normal Exams: Head: Normocephalic w/o trauma Eyes: Pupils are PERRLA w/ EOMI, No scleral icterus, irritation, or foreign bodies noted ENMT: No facial trauma, nasal exudates, pharyngeal erythema, or exudates are noted Dental: No fractured, loose, or missing teeth noted Neck: Full range of motion, without adenopathy, JVD, bruits or thyromegaly Chest/Resp: Clear all law, with good airflow, and symmetry bilaterally CV: Regular rate and rhythm, without murmur or gallop, Pulses 2+ all extremities, capillary refill, <2 seconds all ext., no pedal edema noted Abdomen: Bowel sounds positive, soft, non-tender, non-distended, no hepatosplenomegaly, masses or bruits noted Lymphatic: No lymphadenopathy, or lymphedema noted Musculoskeletal: No tenderness, or deformity noted, good range of motion, all extremities Integumentary: No rashes, hives, or bruising noted, hair and nails, without abnormality Neurologic: Patient is alert, and oriented, cranial nerves, motor/sensory/ cerebellar, exams w/o gross deficits, to observation Psychiatric: Patient exhibits, appropriate attention, emotion and affect Neck (brief) Neck: NOT FOUND: nuchal rigidity, tenderness Neurologic (brief) Comments Alert and oriented x 4. CN 2-12 intact. Sensation intact. Gait normal. Strength normal. Normal motor. Normal coordination. Reflexes 2/4 in all extremities. Absent Babinski bilaterally. No focal neurologic deficit. Normal speech. Differential Diagnoses Considering: Headache (Cluster KEVIN), Headache - Migraine, Headache - Tension/ Muscle Progress Results/Orders Orders Procedure Category Date Status Time Ct Head W/O Contrast CT 01/23/17 Resulted 07:49 Ondansetron Odt PHA 01/23/17 Complete (Zofran Odt) 08:30 Hydrocodone/Acetaminophen PHA 01/23/17 Complete (Viola 5/325) 08:30 Medications Current ED Medications Ondansetron HCl (Zofran Odt) 4 mg O ONCE PO Last administered on 01/23/17 08: 43; Start 01/23/17 at 08:30; Stop 01/23/17 at 08:31; Status DC Acetaminophen/ Hydrocodone Bitart (Viola 5/325) 1 tab O ONCE PO Last administered on 01/23/17 08:42; Start 01/23/17 at 08:30; Stop 01/23/17 at 08:31 ; Status DC Progress Progress Imaging is discussed in detail with the patient and family and questions are answered. Due to multiple ALLERGIES patient is given Zofran 4 mg ODT by mouth times one and Viola 5 mg tablet by mouth 1 with improvement of symptoms. Patient is feeling much better and requests to be discharged home at this time. Patient is discharged home in improved condition. She is to follow up as instructed. Patient is to return to the emergency department if her condition worsens or changes in any manner. Patient is in agreement with the current plan of management. This was a typical headache for the patient who has a long standing history of headaches. CT CT : CT: Head no contrast Interpretation: Normal, Reviewed Written Report TAVO VILLALOBOS DO Jan 23, 2017 09:03
[2017-01-23 09:18] VITALS: BP 178/86; PULSE 63; RESP 15; TEMP 98; O2SAT 96
== END 2017-01-23 09:18 | disposition home or self-care (01) ==
LOC: ED 07:22
DX: G43.909 Migraine, unspecified, not intractable, without status migrainosus (principal)
CPT/HCPCS: 70450; 99284; A9270

== ENCOUNTER 2017-01-31 11:49 | Emergency (ER) | payer MEDICARE, OTHER ==
[~2017-01-31] VITALS: Ht 160 cm; Wt 83.0 kg
[~2017-01-31 11:49] MED LIST changes: -AMLO5TAB2 PO; -DIPH25TA45 PO; -LISI10TA7 PO; +ONDA4TAB7 PO
[2017-01-31 11:52] VITALS: TEMP 97.9; Ht 160 cm; Wt 83.0 kg
--- OUTSIDE RECORDS SUMMARY | 2017-01-31 11:54 | XMS REPORT | Continuity of Care Document ---
Author Author [facility] Organization [facility] Address Unknown Phone Unavailable Care Team Providers Care Yardage Caller Name Role Phone Nellie Dodson Primary Care Physician Unavailable Source Comments Some departments are not documenting in the electronic medical record. If you do not see the information that you expected, contact Release of Information in the Health Information Management department at [phone] for further assistance in locating additional records.[facility] Active Allergies and Adverse Reactions Allergen [...]
--- OUTSIDE RECORDS SUMMARY | 2017-01-31 11:55 | XMS REPORT | Continuity of Care Document ---
Author Author [facility] Organization [facility] Address Unknown Phone Unavailable Allergies [...] BENITES 2449 HYPOTHYROIDISM NOS 06/04/2015 EMILIA BENITES 87533 RECURR DEPR PSYCHOS-MOD 06/04/2015 EMILIA BENITES 16124 RECUR DEPR PSYCH-SEVERE 06/04/2015 EMILIA BENITES 04722 ANXIETY STATE NOS 06/04/2015 EMILIA BENITES 81228 BORDERLINE PERS DISORDER 06/04/2015 EMILIA BENITES 4019 HYPERTENSION NOS 06/04/2015 EMILIA BENITES 25281 ESOPHAGEAL REFLUX 10/11/2015 F F32.9 Major depressive disorder, single episode, unspecified Fifi Ram 10/12/2015 F F32.9 Major depressive disorder, single episode, unspecified Lanny Morales Procedures Code Description [place] [address] [facility] METABOLIC PANEL VIRIDIANA CALDERON MD 11/21/2013 00395 ASSAY OF AMYLASE VIRIDIANA CALDERON MD 11/21/2013 92607 COMPLETE CBC, AUTOMATED VIRIDIANA CALDERON MD 11/21/2013 [...] 32.0 G/DL 32.0-36.0 MCV 85.7 FL 81-99 [place] # 0.79 x10^3 0.0-0.8 [place] % 9.5 % 1.0-9.0 MPV 10.6 FL [...] Status Pt. Type Provider Facility Loc./Unit Complaint [id number] 07/21/2012 21:29:00 2011 01:50:00 DIS Emergency Skyler HERRMANN, Oscar Luciano [facility] on [facility]
--- OUTSIDE RECORDS SUMMARY | 2017-01-31 11:55 | XMS REPORT ---
Author Author [facility] Organization Unknown Address Unknown Phone Unavailable Care Team Providers Care Steam And Gas Turbine Assembler Name Role Phone UNASSIGNED DOCTOR , DOCTOR PP [phone] Reason For Visit Reason for Visit from [...] carlitos Sampson * Address # 1 : [facility]: [address], [address], [place] [...] the responsibility of the patient or patient office machines sales representative to confirm the list of [...]
--- OUTSIDE RECORDS SUMMARY | 2017-01-31 11:55 | XMS REPORT ---
Author Author [facility] Organization Unknown Address Unknown Phone Unavailable Care Team Providers Care Cabinetmaker Supervisor Name Role Phone UNASSIGNED DOCTOR , DOCTOR PP [phone] Reason For Visit Reason for Visit from [...] schedule GEMMA * Address # 1 : [facility]: [address], [address], [...] the responsibility of the patient or patient business center representative to confirm the list of [...]
--- NOTE | 2017-01-31 12:01 | NUR ---
PROVIDER N NOLD RESIDENTIAL SOLAR SALES CONSULTANT AT BEDSIDE
--- OUTSIDE RECORDS SUMMARY | 2017-01-31 12:06 | XMS REPORT | Continuity of Care Document ---
Author Author [facility] Organization [facility] Address Unknown Phone Unavailable Care Team Providers Care Counseling Services Director Name Role Phone Nellie Dodson Primary Care Physician Unavailable Source Comments Some departments are not documenting in the electronic medical record. If you do not see the information that you expected, contact Release of Information in the Health Information Management department at [phone] for further assistance in locating additional records.[facility] Active Allergies and Adverse Reactions Allergen Noted [...]
--- NOTE | 2017-01-31 12:07 | NUR ---
XRAY PATIENT TO RADIOLOGY PER CART, STABLE.
--- OUTSIDE RECORDS SUMMARY | 2017-01-31 12:07 | XMS REPORT | Continuity of Care Document ---
Author Author [facility] Organization [facility] Address Unknown Phone Unavailable Allergies [...] BENITES 2449 HYPOTHYROIDISM NOS 06/04/2015 EMILIA BENITES 43638 RECURR DEPR PSYCHOS-MOD 06/04/2015 EMILIA BENITES 95175 RECUR DEPR PSYCH-SEVERE 06/04/2015 EMILIA BENITES 48865 ANXIETY STATE NOS 06/04/2015 EMILIA BENITES 58054 BORDERLINE PERS DISORDER 06/04/2015 EMILIA BENITES 4019 HYPERTENSION NOS 06/04/2015 EMILIA BENITES 54921 ESOPHAGEAL REFLUX 10/11/2015 F F32.9 Major depressive disorder, single episode, unspecified Fifi Ram 10/12/2015 F F32.9 Major depressive disorder, single episode, unspecified Lanny Morales Procedures Code [place] [address] [facility] METABOLIC PANEL VIRIDIANA CALDERON MD 11/21/2013 19571 ASSAY OF AMYLASE VIRIDIANA CALDERON MD 11/21/2013 52498 COMPLETE CBC, AUTOMATED VIRIDIANA CALDERON MD 11/21/2013 [...] 32.0 G/DL 32.0-36.0 MCV 85.7 FL 81-99 Barber # 0.79 x10^3 0.0-0.8 Barber % 9.5 % 1.0-9.0 MPV 10.6 FL [...] Status Pt. Type Provider Facility Loc./Unit Complaint [id number] 07/21/2012 21:29:00 2011 01:50:00 DIS Emergency Skyler HERRMANN, Oscar Luciano [facility] on [facility]
--- OUTSIDE RECORDS SUMMARY | 2017-01-31 12:08 | XMS REPORT ---
Author Author [facility] Organization Unknown Address Unknown Phone Unavailable Care Team Providers Care Rfid Engineer Name Role Phone UNASSIGNED DOCTOR , DOCTOR PP [phone] Reason For Visit Reason for Visit from [...] schedule GEMMA * Address # 1 : [facility]: [address], [address], [...] the responsibility of the patient or patient patient relations representative to confirm the list of [...]
--- OUTSIDE RECORDS SUMMARY | 2017-01-31 12:08 | XMS REPORT ---
Author Author [facility] Organization Unknown Address Unknown Phone Unavailable Care Team Providers Care Director Of Managed Services Name Role Phone UNASSIGNED DOCTOR , DOCTOR PP [phone] Reason For Visit Reason for Visit from [...] carlitos Sampson * Address # 1 : [facility]: [address], [address], [place] [...] the responsibility of the patient or patient client services representative to confirm the list of medications [...]
--- NOTE | 2017-01-31 12:09 | ERPDOC ---
Departure Disposition Decision Date: Jan 31, 2017 Disposition Decision Time: 12:33 (STEFANYMARIBELL RASHEED APRN) Disposition: 01 DISCHARGED HOME, SELF-CARE Impression Impression (STEFANYWILIMARIBELL Casper APRN) Impression: Primary Impression: right hip pain Severity: Moderate (MARIBELL GIL APRN) Condition: Stable Seen By: Mid-level only (MARIBELL GIL APRN) Referrals: MARTHA MADERA (Family) Patient Instructions: Hip Pain (ED) Problems/Meds/Labs Reviewed?: Yes Medications reviewed and manag: Yes (MARIBELL GIL APRN) Additional Instructions: Take the Hillsdale as needed for pain and the Prednisone as prescribed. May use warm compresses as needed as well. If this is not improving over the next few days then please follow up with your primary care provider. May return to Er with any fever, severe pain, or any other issues/concerns. Follow up care ordered?: Yes Mental Status: Alert, Oriented (MARIBELL GIL APRN) Scripts Hydrocodone/Acetaminophen ([place] 5-325 Tablet) 5-325 Tablet 1 TAB PO Q6H Y for PAIN, #12 TAB 0 Refills Prov: STEFANYWILIROSAubrie Casper APRN 01/31/17 Prednisone (Prednisone) 20 Mg Tablet 20 MG PO DAILY, #5 TAB 0 Refills Take 1 tablet, by mouth, 2 times a day with meals. Prov: STEFANYWILIMARIBELLAubrie Casper APRN 01/31/17 HPI - Lower Extremity General Chief Complaint: Lower Extremity Pain Stated Complaint: TROUBLE WALKING, JOINT OUT OF PLACE Time Seen by Provider: 11:58 Source: patient Exam Limitations: no limitations (MARIBELL GIL APRN) Time Seen by Provider: 11:58 (SOPHIE PELAEZ MD) HPI - Lower Extremity Initial Comments She woke up this morning with some right sided hip pain. She states that she has a history of right sided back/hip pain and arthritis all over her body. She does take Hillsdale for this usually at home but took her last Hillsdale this morning. Pain does radiate down the right leg. Denies any numbness/tingling or weakness in the right leg. Denies any fever or chills. She has not fallen or had any trauma at all lately. Occurred At: home Onset/Timing: Gradual Duration: 4-6 hrs Severity: moderate Pain/Injury Location: right hip Method of Injury: unknown Quality: aching (NOLD,MARIBELL N DENTAL EQUIPMENT REPAIRER) Allergies: Coded Allergies: lactose (Verified Allergy, Severe, 01/31/17) tramadol (Verified Allergy, Severe, CONFUSION,DISTORTED THINKING, 01/31/17) butalbital (Verified Allergy, Intermediate, NAUSEA, 01/31/17) caffeine (Verified Allergy, Intermediate, NAUSEA, 01/31/17) hydromorphone (Verified Allergy, Intermediate, "DREAMS OF RATS", 01/31/17) Sulfa (Sulfonamide Antibiotics) (Verified Allergy, Unknown, BLADDER PAIN, 01/31/17) aripiprazole (Verified Allergy, Unknown, "MULTIPLE SIDE EFFECTS", 01/31/17) PER H&P desvenlafaxine (Verified Allergy, Unknown, 01/31/17) diazepam (Verified Allergy, Unknown, "MAKES PATIENT FEEL HIGH", 01/31/17) PER H&P diphenhydramine (Verified Allergy, Unknown, RESTLESS LEGS, 01/31/17) duloxetine (Verified Allergy, Unknown, 01/31/17) lorazepam (Verified Allergy, Unknown, 01/31/17) nitrofurantoin (Verified Allergy, Unknown, 01/31/17) promethazine (Verified Allergy, Unknown, HYPERACTIVITY, 01/31/17) risperidone (Verified Allergy, Unknown, "MULTIPLE SIDE EFFECTS", 01/31/17) PER H&P desvenlafaxine succinate (Verified Adverse Reaction, Severe, SUICIDAL THOUGHTS, 01/31/17) aspirin (Verified Adverse Reaction, Mild, STOMACH TORN UP, 01/31/17) Past History Patient Surgical History GB PPM Heart Cath Tubal Hyst Knee (NOLD,MARIBELL N DENTAL EQUIPMENT REPAIRER) Past Medical History Metabolic: hypertension, hypothyroidism ENMT: sleep apnea Cardiac: CAD, [place] Respiratory: asthma, pneumonia GI: GERD, IBS Female: UTI Neurological: cerebral aneurysm, headaches, migraines Musculoskeletal: osteoarthritis Psychological: anxiety, depression (NOLD,MARIBELL N DENTAL EQUIPMENT REPAIRER) Surgical History General: gallbladder Cardiac: pacemaker Reproductive/: hysterectomy, tubal ligation Joint: knee (NOLD,MARIBELL N DENTAL EQUIPMENT REPAIRER) Family History Family PMH: FOUND: CHF, cancer (NOLD,MARIBELL N DENTAL EQUIPMENT REPAIRER) Vaccines Hx Influenza Vaccination: No Hx Pneumococcal Vaccination: Yes (Fall 2013 ) Hx Tetanus, Diptheria, Pertuss: No (NOLD,MARIBELL N DENTAL EQUIPMENT REPAIRER) Social History Smoking Status: Never smoker Does patient use chewing tobac: No Substance Use Type: does not use Alcohol Intake: none Sexuality: male partner (NOLD,MARIBELL N DENTAL EQUIPMENT REPAIRER) Review of Systems Constitutional Constitutional: DENIES: chills, dizziness, fatigue, fever, weakness (NOLD, MARIBELL N DENTAL EQUIPMENT REPAIRER) Cardiovascular Cardiac: DENIES: chest pain, dyspnea on exertion, orthopnea Rhythm/Rate: DENIES: irregular beat, palpitations (NOLD,MARIBELL N DENTAL EQUIPMENT REPAIRER) Pulmonary Respiratory: DENIES: cough, dyspnea, sputum, tachypnea (NOLD,MARIBELL N DENTAL EQUIPMENT REPAIRER) GI Upper Abdomen: DENIES: nausea, pain, vomiting Lower Abdomen: DENIES: constipation, diarrhea, pain (NOLD,MARIBELL N DENTAL EQUIPMENT REPAIRER) Musculoskeletal General: pain (right hip and lower back), tenderness (right lower back over SI joint), DENIES: weakness (NOLD,MARIBELL N DENTAL EQUIPMENT REPAIRER) Integumentary Skin: DENIES: rash (NOLD,MARIBELL N DENTAL EQUIPMENT REPAIRER) Neurological General: DENIES: headache, numbness, tingling, weakness (NOLD,MARIBELL N DENTAL EQUIPMENT REPAIRER) Physical Exam General General Nourishment: well nourished, well developed, appears stated age, no acute distress, adult General Body Habitus: well groomed (NOLD,MARIBELL N DENTAL EQUIPMENT REPAIRER) Vitals and Pain First Documented Vital Signs Date Time Temp Pulse Resp B/P Pulse Ox O2 Delivery O2 Flow Rate FiO2 01/31/17 11:52 97.9 62 17 170/74 96 Room Air (SOPHIE PELAEZ MD) Vitals and Pain Weight: Kilograms: 83.000 Height (feet): 5 Height (inches): 3.00 Triage Pain Scale: (NOLD,MARIBELL N DENTAL EQUIPMENT REPAIRER) RN VS reviewed by Provider: Yes (NOCARRESA N DENTAL EQUIPMENT REPAIRER) Normal Exams: Neck: Full range of motion, without adenopathy, JVD, bruits or thyromegaly Chest/Resp: Clear all law, with good airflow, and symmetry bilaterally CV: Regular rate and rhythm, without murmur or gallop, Pulses 2+ all extremities, capillary refill, <2 seconds all ext., no pedal edema noted Abdomen: Bowel sounds positive, soft, non-tender, non-distended, no hepatosplenomegaly, masses or bruits noted Lymphatic: No lymphadenopathy, or lymphedema noted Integumentary: No rashes, hives, or bruising noted Neurologic: Patient is alert, and oriented Psychiatric: Patient exhibits, appropriate attention, emotion and affect (MARIBELL GIL APRN) Musculoskeletal (brief) Musculoskeletal Brief: FOUND: other (sensation intact to BLE), tenderness ( Mild TTP over the right lower back SI joint and lumbar spine), NOT FOUND: deformity, loss of motion (MARIBELL GIL APRN) Integumentary (brief) Integumentary Brief: FOUND: dry, pink, warm (MARIBELL GIL APRN) Differential Diagnoses Considering: Contusion, Dislocation, Fracture, Sprain, Strain (MARBIELL GIL APRN) Progress Results/Orders Orders Procedure Category Date Status Time Pelvis W/2 View Rt Hip RAD 01/31/17 Taken (SOPHIE PELAEZ MD) Progress Progress Xray today is normal. I did review her KTRACS and she has not had much of a Rx for Hillsdale in the last few months. Will go ahead and send her home with Rx for Hillsdale and have her follow up with her PCP. Warm compresses as needed to help with pain. Will try some Prednisone as well to help with the inflammation. If any further issues/concerns then follow up with primary care provider. (MARIBELL GIL APRN) Xray Xray : Reason for Exam: right hip pain Xray: Hip R Interpretation: Normal (MARIBELL GIL APRN) MARIBELL GIL APRN Jan 31, 2017 12:09 SOPHIE PELAEZ MD Jan 31, 2017 14:18
--- NOTE | 2017-01-31 12:17 | NUR ---
BACK FROM XRAY
[2017-01-31] MEDS ORDERED: LEVO150T11 PO (12:41)
[2017-01-31] MEDS ORDERED: PRED20TA PO (12:47)
[2017-01-31] MEDS ORDERED: HYDR-4246 PO (12:47)
[2017-01-31 12:51] VITALS: BP 163/71; PULSE 60; RESP 17; O2SAT 90
--- NOTE | 2017-02-01 13:34 | DI ---
Indication: ITS.REASON: right hip pain PROCEDURE: PELVIS W/2 VIEW RT HIP: Encounter: Initial Comparison: CT abdomen and pelvis dated January 03, 2017 Findings: There is no acute fracture, dislocation or malalignment identified. Multiple pelvic phleboliths. Impression: No acute osseous abnormality. .
== END 2017-01-31 12:51 | disposition home or self-care (01) ==
LOC: ED 11:49
DX: M25.551 Pain in right hip (principal)

== ENCOUNTER 2017-02-22 18:18 | Emergency (ER) | payer MEDICARE, OTHER ==
[~2017-02-22] VITALS: Ht 160 cm; Wt 79.3 kg
[~2017-02-22 18:18] MED LIST changes: -ESOM40CA PO; +FLUT16SP EA NOSTRIL; -LEVO137T2 PO; +LEVO150T11 PO; +LORA10TA7 PO; -ONDA-55 PO; +PRED20TA PO
--- OUTSIDE RECORDS SUMMARY | 2017-02-22 18:23 | XMS REPORT | Continuity of Care Document ---
Author Author [facility] Organization [facility] Address Unknown Phone Unavailable Care Team Providers Care Pourer Bull Ladle Name Role Phone Nellie Dodson Primary Care Physician Unavailable Source Comments Some departments are not documenting in the electronic medical record. If you do not see the information that you expected, contact Release of Information in the Health Information Management department at [phone] for further assistance in locating additional records.[facility] Active Allergies and Adverse Reactions [...]
--- OUTSIDE RECORDS SUMMARY | 2017-02-22 18:24 | XMS REPORT | Continuity of Care Document ---
Author Author [facility] Organization [facility] Address Unknown Phone Unavailable Allergies Active Description [...] BENITES 2449 HYPOTHYROIDISM NOS 06/04/2015 EMILIA BENITES 83104 RECURR DEPR PSYCHOS-MOD 06/04/2015 EMILIA BENITES 14055 RECUR DEPR PSYCH-SEVERE 06/04/2015 EMILIA BENITES 66325 ANXIETY STATE NOS 06/04/2015 EMILIA BENITES 76907 BORDERLINE PERS DISORDER 06/04/2015 EMILIA BENITES 4019 HYPERTENSION NOS 06/04/2015 EMILIA BENITES 00619 ESOPHAGEAL REFLUX 10/11/2015 F F32.9 Major depressive disorder, single episode, unspecified Fifi Ram 10/12/2015 F F32.9 Major depressive disorder, single episode, unspecified Lnany Morales Procedures Code [place] [address] ON LICENSE OF [facility] METABOLIC PANEL VIRIDIANA CALDERON MD 11/21/2013 22550 ASSAY OF AMYLASE VIRIDIANA CALDERON MD 11/21/2013 84657 COMPLETE CBC, AUTOMATED VIRIDIANA CALDERON MD 11/21/2013 [...] 32.0 G/DL 32.0-36.0 MCV 85.7 FL 81-99 Humphreys # 0.79 x10^3 0.0-0.8 Humphreys % 9.5 % 1.0-9.0 MPV 10.6 FL [...] Status Pt. Type Provider Facility Loc./Unit Complaint [id number] 07/21/2012 21:29:00 2011 01:50:00 DIS Emergency Skyler HERRMANN, Oscar Luciano [facility] on [facility]
--- OUTSIDE RECORDS SUMMARY | 2017-02-22 18:24 | XMS REPORT ---
Author Author [facility] Organization Unknown Address Unknown Phone Unavailable Care Team Providers Care Supervisor Intermediates Name Role Phone UNASSIGNED DOCTOR , DOCTOR PP [phone] Reason For Visit Reason for Visit from [...] schedule GEMMA * Address # 1 : [facility]: [address], [address], [place] [...] the responsibility of the patient or patient front office representative to confirm the list of medications [...] 40 mg capsule,delayed release(DR/EC), Ordered By: KUN LNUA RN, BSN Directions: 1 capsule oral daily [...]
--- OUTSIDE RECORDS SUMMARY | 2017-02-22 18:24 | XMS REPORT ---
Author Author [facility] Organization Unknown Address Unknown Phone Unavailable Care Team Providers Care Emergency Department Nurse Name Role Phone UNASSIGNED DOCTOR , DOCTOR PP [phone] Reason For Visit Reason for Visit from [...] carlitos Sampson * Address # 1 : [facility]: [address], [address], [place] [...] the responsibility of the patient or patient retail sales representative to confirm the list of [...]
[2017-02-22 18:25] VITALS: TEMP 98.1; Ht 160 cm; Wt 79.3 kg
[2017-02-22] MEDS ORDERED: LORA10TA7 PO (18:43)
[2017-02-22] MEDS ORDERED: PRED20TA PO (18:43)
[2017-02-22] MEDS ORDERED: FLUT9.9S NAS (18:44)
[2017-02-22] MEDS ORDERED: HYDR-4246 PO (18:49)
--- OUTSIDE RECORDS SUMMARY | 2017-02-22 18:57 | XMS REPORT | Continuity of Care Document ---
Author Author [facility] Organization [facility] Address Unknown Phone Unavailable Care Team Providers Care Power Tong Operator Name Role Phone Nellie Dodson Primary Care Physician Unavailable Source Comments Some departments are not documenting in the electronic medical record. If you do not see the information that you expected, contact Release of Information in the Health Information Management department at [phone] for further assistance in locating additional records.[facility] Active Allergies and Adverse Reactions Allergen [...]
--- OUTSIDE RECORDS SUMMARY | 2017-02-22 18:58 | XMS REPORT | Continuity of Care Document ---
Author Author [facility] Organization [facility] Address Unknown Phone Unavailable Allergies Active Description [...] BENITES 2449 HYPOTHYROIDISM NOS 06/04/2015 EMILIA BENITES 33821 RECURR DEPR PSYCHOS-MOD 06/04/2015 EMILIA BENITES 94373 RECUR DEPR PSYCH-SEVERE 06/04/2015 EMILIA BENITES 32365 ANXIETY STATE NOS 06/04/2015 EMILIA BENITES 14947 BORDERLINE PERS DISORDER 06/04/2015 EMILIA BENITES 4019 HYPERTENSION NOS 06/04/2015 EMILIA BENITES 80664 ESOPHAGEAL REFLUX 10/11/2015 F F32.9 Major depressive disorder, single episode, unspecified Fifi Ram 10/12/2015 F F32.9 Major depressive disorder, single episode, unspecified Lanny Morales Procedures Code Description [place] [address] [facility] METABOLIC PANEL VIRIDIANA CALDERON MD 11/21/2013 35728 ASSAY OF AMYLASE VIRIDIANA CALDERON MD 11/21/2013 01929 COMPLETE CBC, AUTOMATED VIRIDIANA CALDERON MD 11/21/2013 [...] 32.0 G/DL 32.0-36.0 MCV 85.7 FL 81-99 Parker # 0.79 x10^3 0.0-0.8 Parker % 9.5 % 1.0-9.0 MPV 10.6 FL [...] Status Pt. Type Provider Facility Loc./Unit Complaint [id number] 07/21/2012 21:29:00 2011 01:50:00 DIS Emergency Skyler HERRMANN, Oscar Luciano [facility] on [facility]
--- OUTSIDE RECORDS SUMMARY | 2017-02-22 18:58 | XMS REPORT ---
Author Author [facility] Organization Unknown Address Unknown Phone Unavailable Care Team Providers Care Core Driller Name Role Phone UNASSIGNED DOCTOR , DOCTOR PP [phone] Reason For Visit Reason for Visit from [...] Sampson * Address # 1 : [facility]: [address], [address], [...] the responsibility of the patient or patient signs and displays sales representative to confirm the list of [...]
--- OUTSIDE RECORDS SUMMARY | 2017-02-22 18:59 | XMS REPORT ---
Author Author [facility] Organization Unknown Address Unknown Phone Unavailable Care Team Providers Care Rag Cutting Machine Tender Name Role Phone UNASSIGNED DOCTOR , DOCTOR PP [phone] Reason For Visit Reason for Visit from [...] schedule GEMMA * Address # 1 : [facility]: [address], [address], [...] the responsibility of the patient or patient phlebotomy services representative to confirm the list of [...]
[2017-02-22] MEDS ORDERED: HYDROCODONE/APAP 5 mg/325 mg TABLET PO ONE (19:00)
[2017-02-22] MEDS ORDERED: ONDANSETRON ODT 4 MG TAB PO ONE (19:00)
[2017-02-22] MEDS ORDERED: KETOROLAC 60mg/2ml INJECTION IM ONE (20:15)
[2017-02-22] MEDS ORDERED: ORPHENADRINE 60mg/2ml INJECTION IM ONE (20:15)
--- NOTE | 2017-02-22 20:29 | ERPDOC ---
Departure Disposition Decision Date: February 22, 2017 Disposition Decision Time: 20:56 Disposition: 01 DISCHARGED HOME, SELF-CARE Impression Impression Impression: Primary Impression: Tension headache Severity: Severe Condition: Improved Seen By: Physician only Referrals: MARTHA MADERA (Family) 1 Week Patient Instructions: Tension Headache (ED) Problems/Meds/Labs Reviewed?: Yes Medications reviewed and manag: Yes Additional Instructions: Take the flexeril as needed for headaches. Use tylenol with the flexeril. Follow up with your doctor next week. Follow up care ordered?: Yes Mental Status: Alert Scripts Cyclobenzaprine HCl (Cyclobenzaprine HCl) 10 Mg Tablet 10 MG PO TID Y for MUSCLE SPASM, #40 TAB 0 Refills Prov: FEBRUARY,NGUYỄN Beltran DO 02/22/17 HPI - Headache General Chief Complaint: Headache Stated Complaint: HBP, MIGRAINE Time Seen by Provider: 18:46 Source: patient Exam Limitations: no limitations HPI - Headache Initial Comments 71yo woman presents to the ER tonight with a 'migraine KEVIN'. Pt states that she has these daily. Has norco at home, which her PCM has requested that she stop taking for HAs. Pts KEVIN is frontal and posterior. Pain in the posterior is aching , cramping. Her sx tonight are typical of her daily HAs; KEVIN today did not resolve with her norco at home. Occurred At: home Onset: Rapid Duration: 12-24 hrs Pain Scale: Now & Worst: 8/10 Severity/Quality: severe, achy, pressure, throbbing Location: frontal, occipital Prior Headaches/Recent Trauma: chronic headaches Modifying Factors: immobilization, medication Associated Symptoms: fatigue, nausea/vomiting, weakness Hx of Similar Symptoms: Yes Allergies: Coded Allergies: lactose (Verified Allergy, Severe, 02/22/17) tramadol (Verified Allergy, Severe, CONFUSION,DISTORTED THINKING, 02/22/17) butalbital (Verified Allergy, Intermediate, NAUSEA, 02/22/17) caffeine (Verified Allergy, Intermediate, NAUSEA, 02/22/17) hydromorphone (Verified Allergy, Intermediate, "DREAMS OF RATS", 02/22/17) Sulfa (Sulfonamide Antibiotics) (Verified Allergy, Unknown, BLADDER PAIN, 02/22/17) aripiprazole (Verified Allergy, Unknown, "MULTIPLE SIDE EFFECTS", 02/22/17) PER H&P desvenlafaxine (Verified Allergy, Unknown, 02/22/17) diazepam (Verified Allergy, Unknown, "MAKES PATIENT FEEL HIGH", 02/22/17) PER H&P diphenhydramine (Verified Allergy, Unknown, RESTLESS LEGS, 02/22/17) duloxetine (Verified Allergy, Unknown, 02/22/17) lorazepam (Verified Allergy, Unknown, 02/22/17) promethazine (Verified Allergy, Unknown, HYPERACTIVITY, 02/22/17) risperidone (Verified Allergy, Unknown, "MULTIPLE SIDE EFFECTS", 02/22/17) PER H&P desvenlafaxine succinate (Verified Adverse Reaction, Severe, SUICIDAL THOUGHTS, 02/22/17) aspirin (Verified Adverse Reaction, Mild, STOMACH TORN UP, 02/22/17) Past History Patient Surgical History GB PPM Heart Cath Tubal Hyst Knee Past Medical History Metabolic: hypertension, hypothyroidism ENMT: sleep apnea Cardiac: CAD, [place] Respiratory: asthma, pneumonia GI: GERD, IBS Female: UTI Neurological: cerebral aneurysm, headaches, migraines Musculoskeletal: osteoarthritis Psychological: anxiety, depression Surgical History General: gallbladder Cardiac: pacemaker Reproductive/: hysterectomy, tubal ligation Joint: knee Family History Family PMH: FOUND: CHF, cancer Vaccines Hx Influenza Vaccination: No Hx Pneumococcal Vaccination: Yes (Fall 2013 ) Hx Tetanus, Diptheria, Pertuss: No Social History Does patient use chewing tobac: No Substance Use Type: does not use Alcohol Intake: none Sexuality: male partner Review of Systems GI Upper Abdomen: nausea Neurological General: headache All other Systems All Other Systems: Reviewed and Negative Physical Exam General General Nourishment: well nourished, well developed, appears stated age, no acute distress, adult, obese General Body Habitus: disheveled Vitals and Pain First Documented Vital Signs Date Time Temp Pulse Resp B/P Pulse Ox O2 Delivery O2 Flow Rate FiO2 02/22/17 18:25 98.1 66 16 164/81 95 Room Air Weight: Kilograms: 79.300 Height (feet): 5 Height (inches): 3.00 Triage Pain Scale: RN VS reviewed by Provider: Yes Normal Exams: Head: Normocephalic w/o trauma Eyes: Pupils are PERRLA w/ EOMI, No scleral icterus, irritation ENMT: No facial trauma, nasal exudates, pharyngeal erythema Neck: Full range of motion, without adenopathy, JVD Chest/Resp: Clear all law, with good airflow CV: Regular rate and rhythm, without murmur or gallop Abdomen: Bowel sounds positive, soft, non-tender Lymphatic: No lymphadenopathy Musculoskeletal: No tenderness, or deformity noted Integumentary: No rashes, hives, or bruising noted Neurologic: Patient is alert, and oriented Psychiatric: Patient exhibits, appropriate attention Differential Diagnoses Considering: Headache, Headache - Migraine, Headache - Tension/Muscle, Sinusitis - Sphenoid, Sinusitis - Maxillary, Sinusitis - Frontal Progress Results/Orders Orders Procedure Category Date Status Time Ondansetron Odt PHA 02/22/17 Complete (Zofran Odt) 19:00 Hydrocodone/Acetaminophen PHA 02/22/17 Complete ([place] 5/325) 19:00 Orphenadrine (Norflex) PHA 02/22/17 Complete 20:15 Ketorolac (Toradol) PHA 02/22/17 Complete 20:15 Medications Current ED Medications Ondansetron HCl (Zofran Odt) 4 mg O ONCE PO Last administered on 02/22/17 19: 22; Start 02/22/17 at 19:00; Stop 02/22/17 at 19:01; Status DC Acetaminophen/ Hydrocodone Bitart ([place] 5/325) 1 tab O ONCE PO Last administered on 02/22/17 19:22; Start 02/22/17 at 19:00; Stop 02/22/17 at 19:01 ; Status DC Orphenadrine Citrate (Norflex) 60 mg O ONCE IM Last administered on 02/22/17 20:25; Start 02/22/17 at 20:15; Stop 02/22/17 at 20:16; Status DC Ketorolac Tromethamine (Toradol) 60 mg O ONCE IM Last administered on 20:26; Start 02/22/17 at 20:15; Stop 02/22/17 at 20:16; Status DC Progress Progress Marked improvement in pts sx following norflex. Discussed how pts sx are most c/ w a tension KEVIN. Pt readily agrees and requests rx for norflex at home. Will give rx for flexeril; pt agrees. Pt voiced understanding of dx, prognosis, tx, and f/u need. NGUYỄN MAYNARD DO February 22, 2017 20:29
[2017-02-22] MEDS ORDERED: CYCL-375 PO (20:57)
[2017-02-22] MEDS ORDERED: CYCLOBENZAPRINE 10MG (PrePack) SENT HOME ONE (21:00)
[2017-02-22 21:15] VITALS: BP 129/62; PULSE 60; RESP 18; O2SAT 93
--- NOTE | 2017-02-22 21:15 | NUR ---
depart pt is given dismissal instructions with verbal understanding. pt is given script, and prepack. pt leaves via w/v with
== END 2017-02-22 21:15 | disposition home or self-care (01) ==
LOC: ED 18:18
DX: G44.209 Tension-type headache, unspecified, not intractable (principal)
CPT/HCPCS: 96372; 99283; A9270; J1885; J2360